=== PATIENT | male | born 1955 | race Caucasian/White ===

== ENCOUNTER 2018-02-21 12:30 | Emergency (ER) | payer MEDICARE, OTHER ==
[~2018-02-21] VITALS: Ht 5703.2 cm; Wt 70.8 kg
[~2018-02-21 12:30] MED LIST: ALBU8HFA PO; CLOP75TA35 PO; ESOM40CA PO; LISI-222 PO; LOP25T PO; MAGN250T28 PO; MELA1TAB21 PO; MILK200C4 PO; MONT10TA21 PO; NORT50CA PO; ROSU5TAB4 PO; ZIPR40CA2 PO
[2018-02-21] MEDS ORDERED: normal saline 1000ML IV soln IVB ONE (13:00)
[2018-02-21 13:27] LABS: BASOPHILS % (AUTO) 0.5 % (0-1); EOSINOPHILS # (AUTO) 0.2 X10'3 (0-0.9); EOSINOPHILS % (AUTO) 2.6 % (0-6); HEMATOCRIT 37.5 % (42.0-52.0); HEMOGLOBIN 12.7 g/dl (14.0-17.9); LYMPHOCYTES # (AUTO) 1.7 X10'3 (1.1-4.8); MEAN CORPUSCULAR HEMOGLOBIN 29.6 PG (27.0-31.0); MEAN CORPUSCULAR VOLUME 87.3 FL (78-98); MEAN PLATELET VOLUME 6.8 FL (7.4-10.4); MONOCYTES % (AUTO) 11.5 % (2-12); NEUTROPHILS # (AUTO) 5.9 X10'3 (1.8-7.7); NEUTROPHILS % (AUTO) 66.4 % (42-75); PLATELET COUNT 630 X10'3 (140-440); RED CELL DISTRIBUTION WIDTH 13.8 % (11.5-14.5); WHITE BLOOD COUNT 8.9 X10'3 (4.5-11.0)
[2018-02-21 13:41] LABS: ALANINE AMINOTRANSFERASE 27 U/L (12-78); ALBUMIN 2.9 G/DL (3.4-5.0); ALBUMIN/GLOBULIN RATIO 0.7 (1.1-1.5); ALKALINE PHOSPHATASE 80 IU/L (46-116); ANION GAP 15 (8-16); ASPARTATE AMINO TRANSFERASE 13 U/L (10-37); BILIRUBIN,TOTAL 0.4 MG/DL (0.1-1.0); BLOOD UREA NITROGEN 19 MG/DL (7-18); CALCIUM 9.4 MG/DL (8.5-10.1); CHLORIDE 98 MMOL/L (99-107); CREATININE 1.19 MG/DL (0.60-1.10); GLUCOSE 355 MG/DL (70-104); POTASSIUM 3.3 MMOL/L (3.5-5.1); SODIUM 136 MMOL/L (135-145); TOTAL CARBON DIOXIDE 22.8 MMOL/L (24-32); TOTAL PROTEIN 7.1 G/DL (6.4-8.2); eGFR 62 ML/MIN
[2018-02-21 13:50] LABS: LIPASE 142 U/L (73-393)
[2018-02-21] MEDS ORDERED: ROPI1TAB4 PO (15:25)
[2018-02-21] MEDS ORDERED: FENO134C PO (15:25)
[2018-02-21] MEDS ORDERED: NORT50CA5 PO (15:25)
[2018-02-21] MEDS ORDERED: ESOM20CA PO (15:25)
[2018-02-21] MEDS ORDERED: MELO-100 PO (15:25)
[2018-02-21] MEDS ORDERED: LEVO750T21 PO (15:25)
[2018-02-21] MEDS ORDERED: ZIPR40CA2 PO (15:25)
[2018-02-21] MEDS ORDERED: ROSU20TA PO (15:25)
[2018-02-21 15:30] LABS: CLARITY,URINE CLEAR (Clear); COLOR,URINE YELLOW (Yellow); GLUCOSE, URINE >=1000 mg/dl (Neg); KETONES,URINE TRACE mg/dl (Neg); LEUKOCYTE ESTERASE ,URINE NEGATIVE (Neg); NITRITES, URINE NEGATIVE (Neg); OCCULT BLOOD,URINE NEGATIVE (Neg); PROTEIN,URINE NEGATIVE (Neg); UROBILINOGEN,URINE 0.2 E.U/dL (0.2-1.0)
[2018-02-21 15:35] LABS: UA COLLECTION TYPE CLN CATCH MIDSTREAM
[2018-02-21 15:37] LABS: BACTERIA,URINE FEW /HPF (Neg); RBC,URINE 0-2 /HPF (0-2); SQUAMOUS EPITHELIAL CELL,UR FEW /LPF (FEW); WBC,URINE 0-4 /HPF (0-4)
[2018-02-21] MEDS ORDERED: ketorolac trometh. 30mg/ml inj. IV ONE (15:40)
[2018-02-21] MEDS ORDERED: HYDROcodone/acetaminophen 10/325mg tab PO ONE (15:40)
[2018-02-21 15:43] VITALS: BP 120/80
== END 2018-02-21 15:53 | disposition home or self-care (01) ==
LOC: ER 12:31
DX: E03.9 Hypothyroidism, unspecified (principal); K21.9 Gastro-esophageal reflux disease without esophagitis; M19.90 Unspecified osteoarthritis, unspecified site; J02.9 Acute pharyngitis, unspecified; F20.9 Schizophrenia, unspecified; E78.00 Pure hypercholesterolemia, unspecified; I25.10 Atherosclerotic heart disease of native coronary artery without angina pectoris; I10 Essential (primary) hypertension; F17.200 Nicotine dependence, unspecified, uncomplicated; F12.10 Cannabis abuse, uncomplicated; Z76.0 Encounter for issue of repeat prescription; Z90.49 Acquired absence of other specified parts of digestive tract; Z98.890 Other specified postprocedural states; Z88.0 Allergy status to penicillin; Z91.018 Allergy to other foods; Z79.899 Other long term (current) drug therapy
CPT/HCPCS: 36415; 71045; 80053; 81001; 83690; 84443; 85025; 96374; 99285; J1885; J7030

== ENCOUNTER 2018-06-06 14:50 | Inpatient (IN) | payer MEDICARE, OTHER ==
[~2018-06-06] VITALS: Ht 180.3 cm; Wt 72.7 kg
[~2018-06-06 14:50] MED LIST changes: +FENO134C PO; +MELO-100 PO; +NORT50CA5 PO; +ROPI1TAB4 PO
[2018-06-06 15:30] LABS: BASOPHILS % (AUTO) 0.5 % (0-1); EOSINOPHILS # (AUTO) 0.6 X10'3 (0-0.9); EOSINOPHILS % (AUTO) 8.1 % (0-6); HEMOGLOBIN 13.7 g/dl (14.0-17.9); LYMPHOCYTES # (AUTO) 1.8 X10'3 (1.1-4.8); MEAN CORPUSCULAR HEMOGLOBIN 26.3 PG (27.0-31.0); MEAN CORPUSCULAR HGB CONC 33.4 % (33.0-36.5); MEAN CORPUSCULAR VOLUME 78.7 FL (78-98); MEAN PLATELET VOLUME 7.2 FL (7.4-10.4); MONOCYTES # (AUTO) 0.6 X10'3 (0-0.9); MONOCYTES % (AUTO) 7.9 % (2-12); NEUTROPHILS # (AUTO) 4.7 X10'3 (1.8-7.7); NEUTROPHILS % (AUTO) 60.5 % (42-75); PLATELET COUNT 386 X10'3 (140-440); RED BLOOD COUNT 5.21 X10'6 (4.70-6.10); WHITE BLOOD COUNT 7.7 X10'3 (4.5-11.0)
[2018-06-06] MEDS ORDERED: LORazepam 2 mg/ml vial IV ONE (15:30)
[2018-06-06 15:41] LABS: INR 1.1 INR; PARTIAL THROMBOPLASTIN TIME 25 SECONDS (22-32)
[2018-06-06 15:44] LABS: ALANINE AMINOTRANSFERASE 21 U/L (12-78); ALBUMIN 4.1 G/DL (3.4-5.0); ALKALINE PHOSPHATASE 66 IU/L (46-116); ANION GAP 16 (8-16); ASPARTATE AMINO TRANSFERASE 10 U/L (10-37); BILIRUBIN,TOTAL 0.6 MG/DL (0.1-1.0); BLOOD UREA NITROGEN 15 MG/DL (7-18); CALCIUM 9.9 MG/DL (8.5-10.1); CHLORIDE 103 MMOL/L (99-107); CREATININE 1.07 MG/DL (0.60-1.10); GLUCOSE 148 MG/DL (70-104); POTASSIUM 3.7 MMOL/L (3.5-5.1); SODIUM 137 MMOL/L (135-145); TOTAL CARBON DIOXIDE 17.9 MMOL/L (24-32); TOTAL PROTEIN 8.2 G/DL (6.4-8.2); eGFR 70 ML/MIN
[2018-06-06] MEDS ORDERED: ketorolac trometh. 30mg/ml inj. IV ONE (15:45)
[2018-06-06] MEDS ORDERED: pantoprazole 40 MG vial IV ONE (15:45)
[2018-06-06] MEDS ORDERED: ziprasidone 20mg capsule PO ONE (15:45)
[2018-06-06 15:48] LABS: ANISOCYTOSIS 2+; PLATELET ESTIMATE NORMAL; POIKILOCYTOSIS 2+
[2018-06-06 15:49] LABS: BURR CELLS 1+; ELLIPTOCYTES 2+; MICROCYTOSIS 1+
[2018-06-06] MEDS ORDERED: ziprasidone IM 20mg inj **IM only IM ONE (16:10)
[2018-06-06] MEDS ORDERED: normal saline 1000ML IV soln IVB ONE (16:35)
[2018-06-06] MEDS ORDERED: morphine 4 MG/ML inj SYRINge IV ONE (17:05)
[2018-06-06] MEDS ORDERED: METO-395 PO (17:07)
[2018-06-06] MEDS ORDERED: LEVO75TA7 PO (17:07)
[2018-06-06] MEDS ORDERED: SITA1TAB2 PO (17:07)
[2018-06-06] MEDS ORDERED: PANT40TA4 PO (17:07)
[2018-06-06] MEDS ORDERED: SUCR1TAB PO (17:07)
[2018-06-06] MEDS ORDERED: ROSU20TA30 PO (17:07)
[2018-06-06] MEDS ORDERED: MELO7.5T12 PO (17:17)
[2018-06-06] MEDS ORDERED: FENO134C9 PO (17:17)
[2018-06-06] MEDS ORDERED: ROPI1TAB2 PO (17:17)
[2018-06-06] MEDS ORDERED: ZIPR40CA2 PO (17:17)
[2018-06-06] MEDS ORDERED: bisacodyl 10mg suppository rectal RC PRN (17:35)
[2018-06-06] MEDS ORDERED: magnesium 1gm/100ml D5W IVPB 100 ML IV PRN (17:35)
[2018-06-06] MEDS ORDERED: acetaminophen 325mg tablet PO PRN ×2 (17:35)
[2018-06-06] MEDS ORDERED: non-formulary drug (albuterol inhaler (Pro-Air Inhaler) 0 PUFFS) PO PRN (17:35)
[2018-06-06] MEDS ORDERED: MESSAGE TO PHARMACY PO ONE (17:35)
[2018-06-06] MEDS ORDERED: magnesium 4gm in 100ml NS 100 ML IV PRN (17:35)
[2018-06-06] MEDS ORDERED: ondansetron/PF 4mg/2ml inj IV PRN (17:35)
[2018-06-06] MEDS ORDERED: magnesium Cl slow-release 64mg tablet PO PRN (17:35)
[2018-06-06] MEDS ORDERED: montelukast 10mg tablet PO PRN (17:35)
[2018-06-06] MEDS ORDERED: morphine 4 MG/ML inj SYRINge IV PRN (17:35)
[2018-06-06] MEDS ORDERED: dextrose ORAL solution 15 GM/59 ML bottle PO PRN ×2 (17:35)
[2018-06-06] MEDS ORDERED: potassium Cl 40MEQ/NS 500ml 500 ML IV PRN ×2 (17:35)
[2018-06-06] MEDS: K and/or MAG REPLACEMENT MC SCH (17:35)
[2018-06-06] MEDS ORDERED: dextrose 50%-water 50ml dispensing syringe IV PRN ×2 (17:35)
[2018-06-06] MEDS ORDERED: diphenhydrAMINE 25mg capsule PO PRN (17:35)
[2018-06-06] MEDS ORDERED: insulin Lispro (HumaLOG) vial - multi-dose SQ SCH (17:35)
[2018-06-06] MEDS ORDERED: glucagon, human recombinant 1mg kit SUBCUT PRN (17:35)
[2018-06-06] MEDS ORDERED: diphenhydrAMINE 50 mg/ml inj IV PRN (17:35)
[2018-06-06] MEDS ORDERED: mag hydrox/Alum hydrox/simeth 30ml oral suspension PO PRN (17:35)
[2018-06-06] MEDS ORDERED: potassium Cl 20 mEq SR tablet PO PRN ×2 (17:35)
[2018-06-06] MEDS ORDERED: magnesium hydroxide 30ml (MOM) UD suspension PO PRN (17:35)
[2018-06-06] MEDS ORDERED: albuterol 2.5 MG/3 ML nebule NEB PRN (17:50)
[2018-06-06 18:18] LABS: HEMOGLOBIN A1C 8.1 % (4.5-6.2)
[2018-06-06] MEDS: normal saline 1000ml 1,000 ML IV SCH ×2 (18:37→23:38)
[2018-06-06] MEDS ORDERED: non-formulary drug (Ziprasidone Hcl (Geodon) 1 CAP) PO SCH (20:00)
[2018-06-06] MEDS: pantoprazole 40mg Tablet.DR PO SCH (20:03)
[2018-06-06] MEDS: heparin, porcine 5000 units/ml vial SQ SCH (20:03)
[2018-06-06] MEDS: HYDROcodone/acetaminophen 5mg/325mg tablet PO PRN (20:03)
[2018-06-06] MEDS: ziprasidone 20mg capsule PO SCH (20:03)
[2018-06-06] MEDS: insulin glargine (Lantus) pen - multi-dose SQ SCH (20:59)
[2018-06-06] MEDS: sucralfate 1 gm tablet PO SCH (21:00)
[2018-06-06] MEDS: ROPINIRole 1mg tablet PO SCH ×2 (21:00→21:38)
[2018-06-06] MEDS: Melatonin 3mg tablet PO SCH ×2 (21:00→21:39)
[2018-06-06] MEDS ORDERED: MELATONIN PO SCH (21:00)
[2018-06-06] MEDS: pyridoxine 50mg tablet PO SCH (21:00)
[2018-06-06] MEDS ORDERED: PYRIDOXINE HCL PO SCH (21:00)
[2018-06-06] MEDS: nortriptyline 25mg capsule PO SCH ×2 (21:00→21:38)
[2018-06-06 21:02] LABS: CLARITY,URINE CLEAR (Clear); COLOR,URINE YELLOW (Yellow); GLUCOSE, URINE NEGATIVE (Neg); KETONES,URINE TRACE mg/dl (Neg); LEUKOCYTE ESTERASE ,URINE NEGATIVE (Neg); NITRITES, URINE NEGATIVE (Neg); OCCULT BLOOD,URINE NEGATIVE (Neg); PROTEIN,URINE 30 mg/dl (Neg); UROBILINOGEN,URINE 0.2 E.U/dL (0.2-1.0)
[2018-06-06 21:21] LABS: UA COLLECTION TYPE CLN CATCH MIDSTREAM
[2018-06-06 21:23] LABS: BACTERIA,URINE FEW /HPF (Neg); RBC,URINE 0-2 /HPF (0-2)
[2018-06-06 21:24] LABS: MUCUS STRANDS FEW /LPF (Neg); SQUAMOUS EPITHELIAL CELL,UR FEW /LPF (FEW)
[2018-06-06] MEDS: morphine 4 MG/ML inj SYRINge IV PRN (21:38)
[2018-06-06 23:30] VITALS: BP 153/93
[2018-06-07] VITALS (13 sets, daily range): BP systolic 109–158; BP diastolic 69–99
[2018-06-07] MEDS: morphine 4 MG/ML inj SYRINge IV PRN ×5 (02:12→20:19)
[2018-06-07 05:12] LABS: BASOPHILS # (AUTO) 0.1 X10'3 (0-0.2); BASOPHILS % (AUTO) 0.9 % (0-1); EOSINOPHILS # (AUTO) 0.7 X10'3 (0-0.9); HEMATOCRIT 35.3 % (42.0-52.0); HEMOGLOBIN 11.6 g/dl (14.0-17.9); LYMPHOCYTES # (AUTO) 1.9 X10'3 (1.1-4.8); LYMPHOCYTES % (AUTO) 32.7 % (21-51); MEAN CORPUSCULAR HGB CONC 32.9 % (33.0-36.5); MEAN CORPUSCULAR VOLUME 79.1 FL (78-98); MEAN PLATELET VOLUME 7.3 FL (7.4-10.4); MONOCYTES # (AUTO) 0.5 X10'3 (0-0.9); MONOCYTES % (AUTO) 8.4 % (2-12); NEUTROPHILS # (AUTO) 2.6 X10'3 (1.8-7.7); PLATELET COUNT 336 X10'3 (140-440); RED BLOOD COUNT 4.46 X10'6 (4.70-6.10); WHITE BLOOD COUNT 5.7 X10'3 (4.5-11.0)
[2018-06-07 05:41] LABS: ALANINE AMINOTRANSFERASE 19 U/L (12-78); ALBUMIN 3.2 G/DL (3.4-5.0); ALBUMIN/GLOBULIN RATIO 0.9 (1.1-1.5); ALKALINE PHOSPHATASE 53 IU/L (46-116); ANION GAP 9 (8-16); ASPARTATE AMINO TRANSFERASE 13 U/L (10-37); BILIRUBIN,TOTAL 0.4 MG/DL (0.1-1.0); BLOOD UREA NITROGEN 15 MG/DL (7-18); BUN/CREATININE RATIO 16.1 (5.4-32.0); CALCIUM 8.1 MG/DL (8.5-10.1); CHLORIDE 108 MMOL/L (99-107); CREATININE 0.93 MG/DL (0.60-1.10); GLUCOSE 92 MG/DL (70-104); POTASSIUM 4.1 MMOL/L (3.5-5.1); SODIUM 139 MMOL/L (135-145); TOTAL CARBON DIOXIDE 21.7 MMOL/L (24-32); TOTAL PROTEIN 6.6 G/DL (6.4-8.2); eGFR 82 ML/MIN
[2018-06-07 05:46] LABS: MAGNESIUM 1.6 MG/DL (1.5-2.4); PHOSPHORUS 2.8 MG/DL (2.3-4.5)
[2018-06-07 05:59] LABS: ACANTHOCYTES 1+; ANISOCYTOSIS 2+; BURR CELLS 1+; ELLIPTOCYTES 2+; PLATELET ESTIMATE NORMAL
[2018-06-07] MEDS: sucralfate 1 gm tablet PO SCH ×4 (07:00→20:16)
[2018-06-07] MEDS: metoprolol succinate 25mg (24-HOUR) SR. Tablet PO SCH (07:15)
[2018-06-07] MEDS: lisinopril 5mg tablet PO SCH (07:15)
[2018-06-07] MEDS: atorvastatin 20mg tablet PO SCH (07:27)
[2018-06-07] MEDS: levoTHYROXINE 75mcg tablet PO SCH (07:27)
[2018-06-07] MEDS: ziprasidone 20mg capsule PO SCH ×2 (07:27→20:16)
[2018-06-07] MEDS: pantoprazole 40mg Tablet.DR PO SCH ×2 (07:27→20:15)
[2018-06-07] MEDS: heparin, porcine 5000 units/ml vial SQ SCH ×2 (07:31→20:17)
[2018-06-07] MEDS: K and/or MAG REPLACEMENT MC SCH (07:31)
[2018-06-07] MEDS: fenofibrate 145mg tablet PO SCH (07:32)
[2018-06-07] MEDS ORDERED: non-formulary drug (Rosuvastatin Calcium 1 TAB) PO SCH (08:00)
[2018-06-07] MEDS ORDERED: non-formulary drug (Fenofibrate,Micronized (Fenofibrate) 1 CAP) PO SCH (08:00)
[2018-06-07] MEDS ORDERED: MILK THISTLE SEED EXTRACT 200 MG PO SCH (08:00)
[2018-06-07] MEDS: normal saline 1000ml 1,000 ML IV SCH ×2 (10:31→22:33)
[2018-06-07] MEDS ORDERED: fentaNYL/PF 50MCG/1 ML 2ML syringe ONE (13:38)
[2018-06-07] MEDS ORDERED: LIDOcaine Viscous 15ml cup ONE (13:38)
[2018-06-07] MEDS ORDERED: MIDAZolam 5mg/5ml vial ONE (13:38)
[2018-06-07] MEDS: ROPINIRole 1mg tablet PO SCH (20:13)
[2018-06-07] MEDS: Melatonin 3mg tablet PO SCH (20:14)
[2018-06-07] MEDS: pyridoxine 50mg tablet PO SCH (20:15)
[2018-06-07] MEDS: nortriptyline 25mg capsule PO SCH (20:37)
[2018-06-07] MEDS: insulin glargine (Lantus) pen - multi-dose SQ SCH (21:00)
[2018-06-08] VITALS: BP 114/73
[2018-06-08] MEDS: morphine 4 MG/ML inj SYRINge IV PRN (02:56)
[2018-06-08 03:02] LABS: BASOPHILS % (AUTO) 0.6 % (0-1); EOSINOPHILS # (AUTO) 0.8 X10'3 (0-0.9); EOSINOPHILS % (AUTO) 11.2 % (0-6); HEMATOCRIT 34.1 % (42.0-52.0); HEMOGLOBIN 11.3 g/dl (14.0-17.9); LYMPHOCYTES # (AUTO) 1.6 X10'3 (1.1-4.8); LYMPHOCYTES % (AUTO) 21.6 % (21-51); MEAN CORPUSCULAR HEMOGLOBIN 26.3 PG (27.0-31.0); MEAN CORPUSCULAR HGB CONC 33.2 % (33.0-36.5); MEAN CORPUSCULAR VOLUME 79.2 FL (78-98); MEAN PLATELET VOLUME 7.2 FL (7.4-10.4); MONOCYTES # (AUTO) 0.5 X10'3 (0-0.9); MONOCYTES % (AUTO) 7.4 % (2-12); NEUTROPHILS # (AUTO) 4.3 X10'3 (1.8-7.7); NEUTROPHILS % (AUTO) 59.2 % (42-75); PLATELET COUNT 320 X10'3 (140-440); RED BLOOD COUNT 4.31 X10'6 (4.70-6.10); RED CELL DISTRIBUTION WIDTH 17.6 % (11.5-14.5); WHITE BLOOD COUNT 7.2 X10'3 (4.5-11.0)
[2018-06-08 03:47] LABS: ALANINE AMINOTRANSFERASE 19 U/L (12-78); ALBUMIN 3.2 G/DL (3.4-5.0); ALBUMIN/GLOBULIN RATIO 0.9 (1.1-1.5); ALKALINE PHOSPHATASE 53 IU/L (46-116); ANION GAP 12 (8-16); ASPARTATE AMINO TRANSFERASE 16 U/L (10-37); BILIRUBIN,TOTAL 0.4 MG/DL (0.1-1.0); BLOOD UREA NITROGEN 8 MG/DL (7-18); BUN/CREATININE RATIO 9.5 (5.4-32.0); CALCIUM 8.3 MG/DL (8.5-10.1); CHLORIDE 107 MMOL/L (99-107); CREATININE 0.84 MG/DL (0.60-1.10); GLUCOSE 108 MG/DL (70-104); MAGNESIUM 1.7 MG/DL (1.5-2.4); PHOSPHORUS 2.4 MG/DL (2.3-4.5); POTASSIUM 3.4 MMOL/L (3.5-5.1); SODIUM 138 MMOL/L (135-145); TOTAL CARBON DIOXIDE 18.9 MMOL/L (24-32); TOTAL PROTEIN 6.7 G/DL (6.4-8.2); eGFR > 90 ML/MIN
[2018-06-08 06:51] VITALS: BP 120/81
[2018-06-08] MEDS: ziprasidone 20mg capsule PO SCH (07:08)
[2018-06-08] MEDS: sucralfate 1 gm tablet PO SCH (07:09)
[2018-06-08] MEDS: pantoprazole 40mg Tablet.DR PO SCH (07:09)
[2018-06-08] MEDS: HYDROcodone/acetaminophen 5mg/325mg tablet PO PRN (07:09)
[2018-06-08] MEDS: lisinopril 5mg tablet PO SCH (07:09)
[2018-06-08] MEDS: metoprolol succinate 25mg (24-HOUR) SR. Tablet PO SCH (07:09)
[2018-06-08] MEDS: atorvastatin 20mg tablet PO SCH (07:09)
[2018-06-08] MEDS: heparin, porcine 5000 units/ml vial SQ SCH (07:10)
[2018-06-08] MEDS: levoTHYROXINE 75mcg tablet PO SCH (07:10)
[2018-06-08] MEDS: K and/or MAG REPLACEMENT MC SCH (08:00)
[2018-06-08] MEDS: fenofibrate 145mg tablet PO SCH (09:30)
[2018-06-08] MEDS: normal saline 1000ml 1,000 ML IV SCH (09:34)
== END 2018-06-08 10:30 | disposition home or self-care (01) | DRG 392 ==
LOC: ER 14:51 → ED HOLD 17:34 → SUR 3N 23:27
PROVIDERS: ADMIT Family Medicine; ATTEND Family Medicine
PROC: 0D758ZZ Dilation of Esophagus, Via Natural or Artificial Opening Endoscopic (ICD-10-PCS; principal; 2018-06-07)
DX: K22.2 Esophageal obstruction (principal); J45.909 Unspecified asthma, uncomplicated; E03.9 Hypothyroidism, unspecified; E11.9 Type 2 diabetes mellitus without complications; E78.00 Pure hypercholesterolemia, unspecified; E78.5 Hyperlipidemia, unspecified; E87.6 Hypokalemia; F20.9 Schizophrenia, unspecified; F43.10 Post-traumatic stress disorder, unspecified; K44.9 Diaphragmatic hernia without obstruction or gangrene; G47.00 Insomnia, unspecified; I10 Essential (primary) hypertension; I25.10 Atherosclerotic heart disease of native coronary artery without angina pectoris; F41.9 Anxiety disorder, unspecified; J44.9 Chronic obstructive pulmonary disease, unspecified; K21.0 Gastro-esophageal reflux disease with esophagitis; K76.9 Liver disease, unspecified; F12.90 Cannabis use, unspecified, uncomplicated; Z60.2 Problems related to living alone; Z95.5 Presence of coronary angioplasty implant and graft; Z90.49 Acquired absence of other specified parts of digestive tract; Z89.021 Acquired absence of right finger(s); Z88.0 Allergy status to penicillin; Z91.018 Allergy to other foods; Z79.02 Long term (current) use of antithrombotics/antiplatelets; Z79.899 Other long term (current) drug therapy; Z79.84 Long term (current) use of oral hypoglycemic drugs; Z82.3 Family history of stroke; Z82.49 Family history of ischemic heart disease and other diseases of the circulatory system; Z83.3 Family history of diabetes mellitus
CPT/HCPCS: 36415; 43249; 71045; 80053; 81001; 82948; 83036; 83735; 84100; 84443; 84484; 85025; 85610; 85730; 87070; 87088; 93005; 94760; 96361; 96372; 96374; 96375; 99285; A4620; C1726; C9113; G0500; J1644; J1815; J1885; J2060; J2250; J2270; J3010; J3486; J7030

== ENCOUNTER 2018-07-04 14:03 | Emergency (ER) | payer MEDICARE, OTHER ==
[~2018-07-04] VITALS: Ht 180.3 cm; Wt 63.6 kg
[~2018-07-04 14:03] MED LIST changes: -CLOP75TA35 PO; -ESOM40CA PO; -FENO134C PO; +FENO134C9 PO; +LEVO75TA7 PO; -LOP25T PO; -MELO-100 PO; +METO-395 PO; -NORT50CA5 PO; +PANT40TA4 PO; +ROPI1TAB2 PO; -ROPI1TAB4 PO; +ROSU20TA30 PO; -ROSU5TAB4 PO; +SITA1TAB2 PO; +SUCR1TAB PO
[2018-07-04] MEDS ORDERED: LIDOcaine Viscous 15ml cup ONE (15:46)
[2018-07-04] MEDS ORDERED: MIDAZolam 5mg/5ml vial ONE (15:46)
[2018-07-04] MEDS ORDERED: fentaNYL/PF 50MCG/1 ML 2ML syringe ONE (15:46)
[2018-07-04 16:07] VITALS: BP 123/79
[2018-07-04 16:40] VITALS: BP 138/101
[2018-07-04 16:50] VITALS: BP 136/92
[2018-07-04 17:00] VITALS: BP 126/93
[2018-07-04 17:05] VITALS: BP 127/88
[2018-07-04 17:29] VITALS: BP 118/81
[2018-07-04] MEDS ORDERED: ondansetron/PF 4mg/2ml inj IV ONE (18:50)
[2018-07-04] MEDS ORDERED: morphine 4 MG/ML inj SYRINge IV ONE (18:50)
== END 2018-07-04 19:30 | disposition home or self-care (01) ==
LOC: ER 14:03
DX: K22.2 Esophageal obstruction (principal); I25.10 Atherosclerotic heart disease of native coronary artery without angina pectoris; E78.00 Pure hypercholesterolemia, unspecified; I10 Essential (primary) hypertension; F12.90 Cannabis use, unspecified, uncomplicated; Z90.49 Acquired absence of other specified parts of digestive tract; Z98.890 Other specified postprocedural states; Z88.0 Allergy status to penicillin; Z91.018 Allergy to other foods; Z79.899 Other long term (current) drug therapy
CPT/HCPCS: 43239; 96374; 96375; 99152; 99153; 99285; C1726; J2250; J2270; J2405; J3010; J7030; A4620; G0500

== ENCOUNTER 2018-07-19 12:05 | Inpatient (IN) | payer MEDICARE, MEDICAID ==
[~2018-07-19] VITALS: Ht 175.3 cm; Wt 63.0 kg
[2018-07-19] MEDS ORDERED: normal saline 1000ML IV soln IVB ONE (12:30)
[2018-07-19] MEDS ORDERED: morphine 4 MG/ML inj SYRINge IV ONE (12:50)
[2018-07-19] MEDS ORDERED: ondansetron/PF 4mg/2ml inj IV ONE (12:50)
[2018-07-19 13:07] LABS: ALANINE AMINOTRANSFERASE 26 U/L (12-78); ALBUMIN 4.3 G/DL (3.4-5.0); ALKALINE PHOSPHATASE 72 IU/L (46-116); ANION GAP 13 (8-16); ASPARTATE AMINO TRANSFERASE 15 U/L (10-37); BILIRUBIN,TOTAL 0.6 MG/DL (0.1-1.0); BLOOD UREA NITROGEN 15 MG/DL (7-18); CALCIUM 9.6 MG/DL (8.5-10.1); CHLORIDE 102 MMOL/L (99-107); CREATININE 1.07 MG/DL (0.60-1.10); GLUCOSE 165 MG/DL (70-104); POTASSIUM 4.2 MMOL/L (3.5-5.1); SODIUM 137 MMOL/L (135-145); TOTAL PROTEIN 8.5 G/DL (6.4-8.2); eGFR 69 ML/MIN
[2018-07-19 13:12] LABS: BASOPHILS # (AUTO) 0.1 X10'3 (0-0.2); BASOPHILS % (AUTO) 0.8 % (0-1); EOSINOPHILS # (AUTO) 0.9 X10'3 (0-0.9); EOSINOPHILS % (AUTO) 11.8 % (0-6); HEMATOCRIT 43.7 % (42.0-52.0); HEMOGLOBIN 14.5 g/dl (14.0-17.9); LYMPHOCYTES # (AUTO) 1.8 X10'3 (1.1-4.8); LYMPHOCYTES % (AUTO) 24.7 % (21-51); MEAN CORPUSCULAR HEMOGLOBIN 26.2 PG (27.0-31.0); MEAN CORPUSCULAR HGB CONC 33.2 % (33.0-36.5); MEAN CORPUSCULAR VOLUME 79.1 FL (78-98); MONOCYTES # (AUTO) 0.5 X10'3 (0-0.9); MONOCYTES % (AUTO) 7.1 % (2-12); NEUTROPHILS # (AUTO) 4.2 X10'3 (1.8-7.7); NEUTROPHILS % (AUTO) 55.6 % (42-75); PLATELET COUNT 396 X10'3 (140-440); RED BLOOD COUNT 5.52 X10'6 (4.70-6.10); RED CELL DISTRIBUTION WIDTH 17.2 % (11.5-14.5); WHITE BLOOD COUNT 7.5 X10'3 (4.5-11.0)
[2018-07-19] MEDS ORDERED: magnesium 1gm/100ml D5W IVPB 100 ML IV PRN (14:30)
[2018-07-19] MEDS ORDERED: potassium Cl 40MEQ/NS 500ml 500 ML IV PRN ×2 (14:30)
[2018-07-19] MEDS ORDERED: bisacodyl 10mg suppository rectal RC PRN (14:30)
[2018-07-19] MEDS ORDERED: magnesium 4gm in 100ml NS 100 ML IV PRN (14:30)
[2018-07-19] MEDS ORDERED: mag hydrox/Alum hydrox/simeth 30ml oral suspension PO PRN (14:30)
[2018-07-19] MEDS ORDERED: ondansetron/PF 4mg/2ml inj IV PRN (14:30)
[2018-07-19] MEDS ORDERED: morphine 2 MG/ML inj. syringe IV PRN ×3 (14:30→18:25)
[2018-07-19] MEDS ORDERED: acetaminophen 325mg tablet PO PRN (14:30)
[2018-07-19] MEDS ORDERED: magnesium hydroxide 30ml (MOM) UD suspension PO PRN (14:30)
[2018-07-19] MEDS ORDERED: magnesium Cl slow-release 64mg tablet PO PRN (14:30)
[2018-07-19] MEDS ORDERED: potassium Cl 20 mEq SR tablet PO PRN (14:30)
[2018-07-19] MEDS ORDERED: glucagon, human recombinant 1mg kit SUBCUT PRN (14:40)
[2018-07-19] MEDS ORDERED: dextrose 50%-water 50ml dispensing syringe IV PRN ×2 (14:40)
[2018-07-19] MEDS ORDERED: MESSAGE TO PHARMACY PO ONE (14:40)
[2018-07-19] MEDS ORDERED: insulin Lispro (HumaLOG) vial - multi-dose SQ SCH (14:40)
[2018-07-19] MEDS ORDERED: dextrose ORAL solution 15 GM/59 ML bottle PO PRN ×2 (14:40)
[2018-07-19] MEDS ORDERED: pantoprazole 40 MG vial IV SCH (14:40)
[2018-07-19] MEDS: ziprasidone IM 20mg inj **IM only IM SCH ×2 (15:09→21:06)
[2018-07-19] MEDS: levoTHYROXINE sod inj. 100mcg/5 ml vial IV SCH (15:09)
[2018-07-19] MEDS: dextrose 5%-1/2 normal saline 1,000 ML IV SCH (16:14)
[2018-07-19 17:00] VITALS: BP 119/89
[2018-07-19 18:30] VITALS: BP 114/73
[2018-07-19 23:52] VITALS: BP 106/67
[2018-07-20] MEDS: morphine 2 MG/ML inj. syringe IV PRN ×4 (03:04→20:04)
[2018-07-20] MEDS: dextrose 5%-1/2 normal saline 1,000 ML IV SCH ×2 (03:04→18:11)
[2018-07-20 05:32] LABS: BASOPHILS % (AUTO) 0.8 % (0-1); EOSINOPHILS % (AUTO) 18.1 % (0-6); HEMATOCRIT 36.1 % (42.0-52.0); HEMOGLOBIN 12.2 g/dl (14.0-17.9); LYMPHOCYTES # (AUTO) 1.7 X10'3 (1.1-4.8); LYMPHOCYTES % (AUTO) 29.8 % (21-51); MEAN CORPUSCULAR HEMOGLOBIN 26.8 PG (27.0-31.0); MEAN CORPUSCULAR HGB CONC 33.9 % (33.0-36.5); MEAN CORPUSCULAR VOLUME 79.2 FL (78-98); MEAN PLATELET VOLUME 7.7 FL (7.4-10.4); MONOCYTES # (AUTO) 0.5 X10'3 (0-0.9); MONOCYTES % (AUTO) 8.6 % (2-12); NEUTROPHILS # (AUTO) 2.5 X10'3 (1.8-7.7); NEUTROPHILS % (AUTO) 42.7 % (42-75); PLATELET COUNT 312 X10'3 (140-440); RED BLOOD COUNT 4.55 X10'6 (4.70-6.10); RED CELL DISTRIBUTION WIDTH 17.1 % (11.5-14.5); WHITE BLOOD COUNT 5.7 X10'3 (4.5-11.0)
[2018-07-20] MEDS: pantoprazole 40 MG vial IV SCH (05:35)
[2018-07-20 05:53] LABS: ALBUMIN 3.3 G/DL (3.4-5.0); ANION GAP 10 (8-16); BLOOD UREA NITROGEN 13 MG/DL (7-18); BUN/CREATININE RATIO 15.3 (5.4-32.0); CALCIUM 8.2 MG/DL (8.5-10.1); CHLORIDE 107 MMOL/L (99-107); CREATININE 0.85 MG/DL (0.60-1.10); GLUCOSE 128 MG/DL (70-104); MAGNESIUM 1.8 MG/DL (1.5-2.4); POTASSIUM 3.9 MMOL/L (3.5-5.1); SODIUM 140 MMOL/L (135-145); TOTAL CARBON DIOXIDE 23.5 MMOL/L (24-32); eGFR 90 ML/MIN
[2018-07-20 07:18] VITALS: BP 128/90
[2018-07-20] MEDS: K and/or MAG REPLACEMENT MC SCH (07:46)
[2018-07-20] MEDS: levoTHYROXINE sod inj. 100mcg/5 ml vial IV SCH (09:00)
[2018-07-20] MEDS: ziprasidone IM 20mg inj **IM only IM SCH ×2 (09:00→20:01)
[2018-07-20] MEDS: enoxaparin 40mg/0.4ml syringe SUBCUT SCH (09:01)
[2018-07-20] MEDS ORDERED: montelukast 10mg tablet PO PRN (09:40)
[2018-07-20 11:27] VITALS: BP 139/85
[2018-07-20] MEDS: sucralfate 1 gm tablet PO SCH ×3 (12:00→18:54)
[2018-07-20 13:49] VITALS: BP 154/79
[2018-07-20] MEDS ORDERED: diphenhydrAMINE 50 mg/ml inj IV PRN (16:20)
[2018-07-20 18:00] VITALS: BP 157/90
[2018-07-20] MEDS: ziprasidone 20mg capsule PO SCH (18:53)
[2018-07-20] MEDS: Melatonin 3mg tablet PO SCH (18:54)
[2018-07-20] MEDS: nortriptyline 25mg capsule PO SCH (18:54)
[2018-07-20] MEDS: ROPINIRole 1mg tablet PO SCH (18:54)
[2018-07-21] VITALS (20 sets, daily range): BP systolic 138–192; BP diastolic 81–110
[2018-07-21] MEDS: morphine 2 MG/ML inj. syringe IV PRN ×4 (00:09→14:04)
[2018-07-21] MEDS: pantoprazole 40 MG vial IV SCH (05:31)
[2018-07-21 06:00] LABS: BASOPHILS % (AUTO) 0.6 % (0-1); EOSINOPHILS # (AUTO) 1.2 X10'3 (0-0.9); EOSINOPHILS % (AUTO) 18.6 % (0-6); HEMOGLOBIN 12.2 g/dl (14.0-17.9); LYMPHOCYTES # (AUTO) 1.6 X10'3 (1.1-4.8); LYMPHOCYTES % (AUTO) 23.9 % (21-51); MEAN CORPUSCULAR HEMOGLOBIN 26.7 PG (27.0-31.0); MEAN CORPUSCULAR HGB CONC 33.9 % (33.0-36.5); MEAN CORPUSCULAR VOLUME 78.8 FL (78-98); MEAN PLATELET VOLUME 7.6 FL (7.4-10.4); MONOCYTES # (AUTO) 0.5 X10'3 (0-0.9); MONOCYTES % (AUTO) 8.2 % (2-12); NEUTROPHILS # (AUTO) 3.3 X10'3 (1.8-7.7); NEUTROPHILS % (AUTO) 48.7 % (42-75); PLATELET COUNT 340 X10'3 (140-440); RED BLOOD COUNT 4.57 X10'6 (4.70-6.10); RED CELL DISTRIBUTION WIDTH 17.6 % (11.5-14.5); WHITE BLOOD COUNT 6.6 X10'3 (4.5-11.0)
[2018-07-21 06:11] LABS: ALBUMIN 3.3 G/DL (3.4-5.0); ANION GAP 12 (8-16); BLOOD UREA NITROGEN 5 MG/DL (7-18); BUN/CREATININE RATIO 6.7 (5.4-32.0); CALCIUM 8.2 MG/DL (8.5-10.1); CHLORIDE 106 MMOL/L (99-107); CREATININE 0.75 MG/DL (0.60-1.10); GLUCOSE 137 MG/DL (70-104); MAGNESIUM 1.7 MG/DL (1.5-2.4); POTASSIUM 3.6 MMOL/L (3.5-5.1); SODIUM 141 MMOL/L (135-145); TOTAL CARBON DIOXIDE 23.2 MMOL/L (24-32); eGFR > 90 ML/MIN
[2018-07-21] MEDS: sucralfate 1 gm tablet PO SCH ×4 (07:00→20:08)
[2018-07-21] MEDS: K and/or MAG REPLACEMENT MC SCH (07:22)
[2018-07-21] MEDS: levoTHYROXINE 75mcg tablet PO SCH (07:23)
[2018-07-21] MEDS: enoxaparin 40mg/0.4ml syringe SUBCUT SCH (07:23)
[2018-07-21] MEDS: lisinopril 5mg tablet PO SCH (07:23)
[2018-07-21] MEDS: ziprasidone 20mg capsule PO SCH ×2 (07:23→19:24)
[2018-07-21] MEDS: metoprolol succinate 25mg (24-HOUR) SR. Tablet PO SCH (07:23)
[2018-07-21] MEDS: ziprasidone IM 20mg inj **IM only IM SCH ×2 (07:24→19:24)
[2018-07-21] MEDS: fenofibrate 145mg tablet PO SCH (07:32)
[2018-07-21] MEDS: levoTHYROXINE sod inj. 100mcg/5 ml vial IV SCH (08:41)
[2018-07-21] MEDS: dextrose 5%-1/2 normal saline 1,000 ML IV SCH (08:44)
[2018-07-21] MEDS ORDERED: normal saline 1000ml 1,000 ML IV SCH (15:53)
[2018-07-21] MEDS ORDERED: LIDOcaine Viscous 15ml cup PO ONE (15:55)
[2018-07-21] MEDS ORDERED: simethicone 40mg/0.6ml oral drops 30ml MC ONE (15:55)
[2018-07-21] MEDS ORDERED: fentaNYL/PF 50MCG/1 ML 2ML syringe IV PRN (15:55)
[2018-07-21] MEDS ORDERED: MIDAZolam 5mg/5ml vial IV PRN (15:55)
[2018-07-21] MEDS ORDERED: fentaNYL/PF 50MCG/1 ML 2ML syringe ONE (16:13)
[2018-07-21] MEDS ORDERED: MIDAZolam 5mg/5ml vial ONE (16:13)
[2018-07-21] MEDS ORDERED: LIDOcaine Viscous 15ml cup ONE (16:13)
[2018-07-21] MEDS: pantoprazole 40mg Tablet.DR PO SCH (19:21)
[2018-07-21] MEDS: Melatonin 3mg tablet PO SCH (20:07)
[2018-07-21] MEDS: HYDROcodone/acetaminophen 10/325mg tab PO PRN (20:07)
[2018-07-21] MEDS: nortriptyline 25mg capsule PO SCH (20:08)
[2018-07-21] MEDS: ROPINIRole 1mg tablet PO SCH (20:11)
[2018-07-22] VITALS: BP 151/72
[2018-07-22] MEDS: dextrose 5%-1/2 normal saline 1,000 ML IV SCH ×2 (00:01→14:00)
[2018-07-22] MEDS: HYDROcodone/acetaminophen 10/325mg tab PO PRN ×4 (04:00→12:43)
[2018-07-22 06:20] LABS: BASOPHILS % (AUTO) 0.7 % (0-1); EOSINOPHILS # (AUTO) 0.9 X10'3 (0-0.9); EOSINOPHILS % (AUTO) 16.3 % (0-6); HEMATOCRIT 38.4 % (42.0-52.0); HEMOGLOBIN 12.7 g/dl (14.0-17.9); LYMPHOCYTES # (AUTO) 1.5 X10'3 (1.1-4.8); LYMPHOCYTES % (AUTO) 28.4 % (21-51); MEAN CORPUSCULAR HEMOGLOBIN 26.3 PG (27.0-31.0); MEAN CORPUSCULAR HGB CONC 33.2 % (33.0-36.5); MEAN CORPUSCULAR VOLUME 79.5 FL (78-98); MEAN PLATELET VOLUME 7.6 FL (7.4-10.4); MONOCYTES # (AUTO) 0.4 X10'3 (0-0.9); MONOCYTES % (AUTO) 7.7 % (2-12); NEUTROPHILS # (AUTO) 2.5 X10'3 (1.8-7.7); NEUTROPHILS % (AUTO) 46.9 % (42-75); PLATELET COUNT 349 X10'3 (140-440); RED BLOOD COUNT 4.83 X10'6 (4.70-6.10); WHITE BLOOD COUNT 5.3 X10'3 (4.5-11.0)
[2018-07-22 06:43] LABS: ALBUMIN 3.5 G/DL (3.4-5.0); ANION GAP 10 (8-16); BLOOD UREA NITROGEN 4 MG/DL (7-18); BUN/CREATININE RATIO 4.6 (5.4-32.0); CALCIUM 8.9 MG/DL (8.5-10.1); CHLORIDE 105 MMOL/L (99-107); CREATININE 0.87 MG/DL (0.60-1.10); GLUCOSE 123 MG/DL (70-104); MAGNESIUM 1.7 MG/DL (1.5-2.4); POTASSIUM 3.3 MMOL/L (3.5-5.1); SODIUM 141 MMOL/L (135-145); TOTAL CARBON DIOXIDE 26.4 MMOL/L (24-32); eGFR 88 ML/MIN
[2018-07-22 07:00] VITALS: BP 155/103
[2018-07-22] MEDS: ziprasidone 20mg capsule PO SCH (07:14)
[2018-07-22] MEDS: sucralfate 1 gm tablet PO SCH ×2 (07:15→11:39)
[2018-07-22] MEDS: potassium Cl 20 mEq SR tablet PO PRN ×2 (07:15→11:39)
[2018-07-22] MEDS: lisinopril 5mg tablet PO SCH (07:16)
[2018-07-22] MEDS: enoxaparin 40mg/0.4ml syringe SUBCUT SCH (07:16)
[2018-07-22] MEDS: metoprolol succinate 25mg (24-HOUR) SR. Tablet PO SCH (07:16)
[2018-07-22] MEDS: levoTHYROXINE 75mcg tablet PO SCH (07:16)
[2018-07-22] MEDS: pantoprazole 40mg Tablet.DR PO SCH (07:16)
[2018-07-22] MEDS: ziprasidone IM 20mg inj **IM only IM SCH (07:25)
[2018-07-22] MEDS: K and/or MAG REPLACEMENT MC SCH (07:26)
[2018-07-22] MEDS: levoTHYROXINE sod inj. 100mcg/5 ml vial IV SCH (07:26)
[2018-07-22] MEDS: fenofibrate 145mg tablet PO SCH (08:41)
[2018-07-22 11:52] VITALS: BP 139/87
== END 2018-07-22 16:26 | disposition home or self-care (01) | DRG 392 ==
LOC: ER 12:05 → ED HOLD 14:30 → SUR 3N 16:45
PROVIDERS: ADMIT Internal Medicine; ATTEND Family Medicine
PROC: 0D758ZZ Dilation of Esophagus, Via Natural or Artificial Opening Endoscopic (ICD-10-PCS; principal; 2018-07-21)
DX: K22.2 Esophageal obstruction (principal); E11.9 Type 2 diabetes mellitus without complications; F43.10 Post-traumatic stress disorder, unspecified; I25.10 Atherosclerotic heart disease of native coronary artery without angina pectoris; E03.9 Hypothyroidism, unspecified; E78.00 Pure hypercholesterolemia, unspecified; E86.0 Dehydration; F20.9 Schizophrenia, unspecified; F12.90 Cannabis use, unspecified, uncomplicated; F41.9 Anxiety disorder, unspecified; I10 Essential (primary) hypertension; J45.909 Unspecified asthma, uncomplicated; Z90.49 Acquired absence of other specified parts of digestive tract; Z95.5 Presence of coronary angioplasty implant and graft; Z88.0 Allergy status to penicillin; Z91.018 Allergy to other foods; Z79.82 Long term (current) use of aspirin; Z79.02 Long term (current) use of antithrombotics/antiplatelets; Z79.899 Other long term (current) drug therapy
CPT/HCPCS: 36415; 43249; 71045; 80048; 80053; 82948; 83036; 83735; 84443; 85025; 87070; 92616; 96361; 96374; 96375; 99152; 99285; C1726; C9113; J1200; J1650; J2250; J2270; J2405; J3010; J3486; J7030

== ENCOUNTER 2018-08-04 11:55 | Emergency (ER) | payer MEDICARE, MEDICAID ==
[~2018-08-04] VITALS: Ht 180.3 cm; Wt 59.1 kg
[~2018-08-04 11:55] MED LIST changes: -MAGN250T28 PO
[2018-08-04 14:01] LABS: BASOPHILS % (AUTO) 0.5 % (0-1); EOSINOPHILS # (AUTO) 0.3 X10'3 (0-0.9); EOSINOPHILS % (AUTO) 4.2 % (0-6); HEMATOCRIT 40.5 % (42.0-52.0); HEMOGLOBIN 13.3 g/dl (14.0-17.9); LYMPHOCYTES # (AUTO) 1.2 X10'3 (1.1-4.8); LYMPHOCYTES % (AUTO) 16.1 % (21-51); MEAN CORPUSCULAR HGB CONC 32.7 % (33.0-36.5); MEAN CORPUSCULAR VOLUME 79.4 FL (78-98); MEAN PLATELET VOLUME 7.6 FL (7.4-10.4); MONOCYTES # (AUTO) 0.4 X10'3 (0-0.9); MONOCYTES % (AUTO) 5.6 % (2-12); NEUTROPHILS # (AUTO) 5.6 X10'3 (1.8-7.7); NEUTROPHILS % (AUTO) 73.6 % (42-75); PLATELET COUNT 437 X10'3 (140-440); RED CELL DISTRIBUTION WIDTH 17.8 % (11.5-14.5); WHITE BLOOD COUNT 7.7 X10'3 (4.5-11.0)
[2018-08-04 14:12] LABS: ALANINE AMINOTRANSFERASE 26 U/L (12-78); ALKALINE PHOSPHATASE 78 IU/L (46-116); ANION GAP 20 (8-16); ASPARTATE AMINO TRANSFERASE 16 U/L (10-37); BILIRUBIN,TOTAL 0.5 MG/DL (0.1-1.0); BLOOD UREA NITROGEN 27 MG/DL (7-18); BUN/CREATININE RATIO 27.6 (5.4-32.0); CALCIUM 9.3 MG/DL (8.5-10.1); CHLORIDE 103 MMOL/L (99-107); CREATININE 0.98 MG/DL (0.60-1.10); GLUCOSE 118 MG/DL (70-104); INR 1.1 INR; PARTIAL THROMBOPLASTIN TIME 28 SECONDS (22-32); PROTHROMBIN TIME 11.2 SECONDS (9.0-12.0); SODIUM 143 MMOL/L (135-145); TOTAL CARBON DIOXIDE 20.4 MMOL/L (24-32); TOTAL PROTEIN 8.1 G/DL (6.4-8.2); eGFR 77 ML/MIN
[2018-08-04] MEDS ORDERED: normal saline 1000ml 1,000 ML IV ONE (14:15)
[2018-08-04] MEDS ORDERED: LIDOcaine Viscous 15ml cup ONE (16:58)
[2018-08-04] MEDS ORDERED: fentaNYL/PF 50MCG/1 ML 2ML syringe ONE (16:58)
[2018-08-04] MEDS ORDERED: MIDAZolam 5mg/5ml vial ONE (16:58)
[2018-08-04 17:14] VITALS: BP 137/87
[2018-08-04 18:10] VITALS: BP 163/92
[2018-08-04 18:20] VITALS: BP 174/83
[2018-08-04 18:30] VITALS: BP 160/82
[2018-08-04 18:40] VITALS: BP 146/95
[2018-08-04 19:08] VITALS: BP 140/88
== END 2018-08-04 19:09 | disposition home or self-care (01) ==
LOC: ER 11:55
DX: K22.2 Esophageal obstruction (principal); I25.10 Atherosclerotic heart disease of native coronary artery without angina pectoris; E78.00 Pure hypercholesterolemia, unspecified; I10 Essential (primary) hypertension; F12.90 Cannabis use, unspecified, uncomplicated; Z90.49 Acquired absence of other specified parts of digestive tract; Z98.890 Other specified postprocedural states; Z88.0 Allergy status to penicillin; Z91.018 Allergy to other foods; Z79.899 Other long term (current) drug therapy
CPT/HCPCS: 36415; 43239; 43249; 80053; 85025; 85610; 85730; 93005; 96360; 99285; C1726; J2250; J3010; J7030; 99152; A4620

== ENCOUNTER 2018-08-24 11:27 | Inpatient (IN) | payer MEDICARE, MEDICAID ==
[~2018-08-24] VITALS: Ht 180.3 cm; Wt 63.3 kg
[2018-08-24] VITALS (7 sets, daily range): BP systolic 137–160; BP diastolic 90–103
[~2018-08-24 11:27] MED LIST changes: -MELA1TAB21 PO; -MILK200C4 PO
[2018-08-24] MEDS ORDERED: normal saline 1000ML IV soln IVB ONE (12:30)
[2018-08-24] MEDS ORDERED: pantoprazole 40 MG vial IV ONE (12:30)
[2018-08-24] MEDS ORDERED: ondansetron/PF 4mg/2ml inj IV ONE (12:40)
[2018-08-24 13:06] LABS: BASOPHILS % (AUTO) 0.4 % (0-1); EOSINOPHILS # (AUTO) 0.9 X10'3 (0-0.9); HEMATOCRIT 45.5 % (42.0-52.0); HEMOGLOBIN 14.8 g/dl (14.0-17.9); LYMPHOCYTES # (AUTO) 2.2 X10'3 (1.1-4.8); LYMPHOCYTES % (AUTO) 22.1 % (21-51); MEAN CORPUSCULAR HEMOGLOBIN 25.5 PG (27.0-31.0); MEAN CORPUSCULAR HGB CONC 32.4 % (33.0-36.5); MEAN CORPUSCULAR VOLUME 78.8 FL (78-98); MEAN PLATELET VOLUME 7.4 FL (7.4-10.4); MONOCYTES # (AUTO) 0.8 X10'3 (0-0.9); MONOCYTES % (AUTO) 7.9 % (2-12); NEUTROPHILS # (AUTO) 6.1 X10'3 (1.8-7.7); NEUTROPHILS % (AUTO) 60.6 % (42-75); PLATELET COUNT 517 X10'3 (140-440); RED BLOOD COUNT 5.77 X10'6 (4.70-6.10); WHITE BLOOD COUNT 10.1 X10'3 (4.5-11.0)
[2018-08-24 13:16] LABS: PROTHROMBIN TIME 10.5 SECONDS (9.0-12.0)
[2018-08-24 13:18] LABS: ALANINE AMINOTRANSFERASE 28 U/L (12-78); ALBUMIN 4.4 G/DL (3.4-5.0); ALBUMIN/GLOBULIN RATIO 0.9 (1.1-1.5); ALKALINE PHOSPHATASE 83 IU/L (46-116); ANION GAP 13 (8-16); ASPARTATE AMINO TRANSFERASE 12 U/L (10-37); BILIRUBIN,TOTAL 0.4 MG/DL (0.1-1.0); BLOOD UREA NITROGEN 17 MG/DL (7-18); BUN/CREATININE RATIO 13.4 (5.4-32.0); CHLORIDE 97 MMOL/L (99-107); CREATININE 1.27 MG/DL (0.60-1.10); GLUCOSE 238 MG/DL (70-104); POTASSIUM 3.7 MMOL/L (3.5-5.1); SODIUM 135 MMOL/L (135-145); TOTAL CARBON DIOXIDE 24.9 MMOL/L (24-32); TOTAL PROTEIN 9.1 G/DL (6.4-8.2); eGFR 57 ML/MIN
[2018-08-24] MEDS ORDERED: fentaNYL/PF 50MCG/1 ML 2ML syringe ONE (15:28)
[2018-08-24] MEDS ORDERED: LIDOcaine Viscous 15ml cup ONE (15:29)
[2018-08-24] MEDS ORDERED: MIDAZolam 5mg/5ml vial ONE (15:29)
[2018-08-24] MEDS ORDERED: dextrose ORAL solution 15 GM/59 ML bottle PO PRN ×2 (15:35)
[2018-08-24] MEDS ORDERED: dextrose 50%-water 50ml dispensing syringe IV PRN ×2 (15:35)
[2018-08-24] MEDS ORDERED: magnesium Cl slow-release 64mg tablet PO PRN (15:35)
[2018-08-24] MEDS ORDERED: insulin Lispro (HumaLOG) vial - multi-dose SQ SCH (15:35)
[2018-08-24] MEDS ORDERED: magnesium 4gm in 100ml NS 100 ML IV PRN (15:35)
[2018-08-24] MEDS ORDERED: potassium Cl 20 mEq SR tablet PO PRN ×2 (15:35)
[2018-08-24] MEDS ORDERED: acetaminophen 325mg tablet PO PRN (15:35)
[2018-08-24] MEDS ORDERED: ondansetron/PF 4mg/2ml inj IV PRN (15:35)
[2018-08-24] MEDS ORDERED: MESSAGE TO PHARMACY PO ONE (15:35)
[2018-08-24] MEDS ORDERED: glucagon, human recombinant 1mg kit SUBCUT PRN (15:35)
[2018-08-24] MEDS ORDERED: potassium Cl 40MEQ/NS 500ml 500 ML IV PRN ×2 (15:35)
[2018-08-24] MEDS ORDERED: metoclopramide 10mg tablet PO ONE (15:35)
[2018-08-24] MEDS ORDERED: magnesium 1gm/100ml D5W IVPB 100 ML IV PRN (15:35)
[2018-08-24] MEDS ORDERED: montelukast 10mg tablet PO PRN (17:15)
[2018-08-24] MEDS: normal saline 1000ml 1,000 ML IV SCH (17:24)
[2018-08-24] MEDS: HYDROcodone/acetaminophen 5mg/325mg tablet PO PRN (17:30)
[2018-08-24] MEDS: morphine 2 MG/ML inj. syringe IV PRN (19:19)
[2018-08-24] MEDS ORDERED: non-formulary drug (Ziprasidone Hcl (Geodon) 1 CAP) PO SCH (20:00)
[2018-08-24] MEDS: pantoprazole 40mg Tablet.DR PO SCH (20:24)
[2018-08-24] MEDS: ziprasidone 20mg capsule PO SCH (20:25)
[2018-08-24] MEDS: heparin, porcine 5000 units/ml vial SQ SCH (20:25)
[2018-08-24] MEDS: sucralfate 1 gm tablet PO SCH (20:26)
[2018-08-24] MEDS ORDERED: insulin glargine (Lantus) pen - multi-dose SQ SCH (21:00)
[2018-08-24] MEDS ORDERED: temazepam 15mg capsule PO PRN (21:00)
[2018-08-24] MEDS ORDERED: nortriptyline 25mg capsule PO SCH (21:00)
[2018-08-24] MEDS ORDERED: ROPINIRole 1mg tablet PO SCH (21:00)
[2018-08-25] VITALS: BP 124/80
[2018-08-25] MEDS: normal saline 1000ml 1,000 ML IV SCH ×2 (03:45→10:48)
[2018-08-25 04:49] LABS: BASOPHILS # (AUTO) 0.1 X10'3 (0-0.2); EOSINOPHILS # (AUTO) 0.7 X10'3 (0-0.9); HEMATOCRIT 35.1 % (42.0-52.0); HEMOGLOBIN 11.5 g/dl (14.0-17.9); LYMPHOCYTES # (AUTO) 1.7 X10'3 (1.1-4.8); LYMPHOCYTES % (AUTO) 30.6 % (21-51); MEAN CORPUSCULAR HEMOGLOBIN 25.7 PG (27.0-31.0); MEAN CORPUSCULAR HGB CONC 32.6 % (33.0-36.5); MEAN CORPUSCULAR VOLUME 78.6 FL (78-98); MONOCYTES # (AUTO) 0.4 X10'3 (0-0.9); MONOCYTES % (AUTO) 7.9 % (2-12); NEUTROPHILS # (AUTO) 2.6 X10'3 (1.8-7.7); NEUTROPHILS % (AUTO) 47.5 % (42-75); PLATELET COUNT 402 X10'3 (140-440); RED BLOOD COUNT 4.47 X10'6 (4.70-6.10); RED CELL DISTRIBUTION WIDTH 17.9 % (11.5-14.5); WHITE BLOOD COUNT 5.5 X10'3 (4.5-11.0)
[2018-08-25] MEDS: morphine 2 MG/ML inj. syringe IV PRN ×2 (05:06→12:15)
[2018-08-25 05:26] LABS: ALANINE AMINOTRANSFERASE 21 U/L (12-78); ALBUMIN/GLOBULIN RATIO 0.9 (1.1-1.5); ALKALINE PHOSPHATASE 70 IU/L (46-116); ANION GAP 8 (8-16); ASPARTATE AMINO TRANSFERASE 10 U/L (10-37); BILIRUBIN,TOTAL 0.4 MG/DL (0.1-1.0); BLOOD UREA NITROGEN 9 MG/DL (7-18); BUN/CREATININE RATIO 10.5 (5.4-32.0); CALCIUM 8.1 MG/DL (8.5-10.1); CHLORIDE 109 MMOL/L (99-107); CREATININE 0.86 MG/DL (0.60-1.10); GLUCOSE 136 MG/DL (70-104); MAGNESIUM 1.7 MG/DL (1.5-2.4); POTASSIUM 3.7 MMOL/L (3.5-5.1); SODIUM 142 MMOL/L (135-145); TOTAL CARBON DIOXIDE 25.3 MMOL/L (24-32); TOTAL PROTEIN 6.5 G/DL (6.4-8.2); eGFR 89 ML/MIN
[2018-08-25 06:59] VITALS: BP 138/82
[2018-08-25] MEDS ORDERED: non-formulary drug (Rosuvastatin Calcium 1 TAB) PO SCH (08:00)
[2018-08-25] MEDS ORDERED: K and/or MAG REPLACEMENT MC SCH (08:00)
[2018-08-25] MEDS ORDERED: atorvastatin 20mg tablet PO SCH (08:00)
[2018-08-25] MEDS ORDERED: lisinopril 5mg tablet PO SCH (08:00)
[2018-08-25] MEDS ORDERED: levoTHYROXINE 75mcg tablet PO SCH (08:00)
[2018-08-25] MEDS ORDERED: metoprolol succinate 25mg (24-HOUR) SR. Tablet PO SCH (08:00)
[2018-08-25] MEDS: ziprasidone 20mg capsule PO SCH (08:46)
[2018-08-25] MEDS: pantoprazole 40mg Tablet.DR PO SCH (08:48)
[2018-08-25] MEDS: heparin, porcine 5000 units/ml vial SQ SCH (08:49)
[2018-08-25] MEDS: sucralfate 1 gm tablet PO SCH ×2 (08:54→12:14)
[2018-08-25 12:08] VITALS: BP 135/92
[2018-08-25] MEDS: HYDROcodone/acetaminophen 5mg/325mg tablet PO PRN (15:19)
== END 2018-08-25 16:13 | disposition home or self-care (01) | DRG 392 ==
LOC: ER 11:27 → ED HOLD 15:33 → SUR 3N 19:10
PROVIDERS: ADMIT Internal Medicine; ATTEND Family Medicine
PROC: 0D758ZZ Dilation of Esophagus, Via Natural or Artificial Opening Endoscopic (ICD-10-PCS; principal; 2018-08-24)
PROC: 0DB58ZX Excision of Esophagus, Via Natural or Artificial Opening Endoscopic, Diagnostic (ICD-10-PCS; 2018-08-24)
DX: K22.2 Esophageal obstruction (principal); R45.851 Suicidal ideations; F32.9 Major depressive disorder, single episode, unspecified; F20.9 Schizophrenia, unspecified; F43.10 Post-traumatic stress disorder, unspecified; G25.81 Restless legs syndrome; E03.9 Hypothyroidism, unspecified; E11.65 Type 2 diabetes mellitus with hyperglycemia; E78.00 Pure hypercholesterolemia, unspecified; E78.5 Hyperlipidemia, unspecified; F12.10 Cannabis abuse, uncomplicated; R13.10 Dysphagia, unspecified; G89.4 Chronic pain syndrome; I10 Essential (primary) hypertension; I25.10 Atherosclerotic heart disease of native coronary artery without angina pectoris; J45.909 Unspecified asthma, uncomplicated; K21.9 Gastro-esophageal reflux disease without esophagitis; K29.70 Gastritis, unspecified, without bleeding; K44.9 Diaphragmatic hernia without obstruction or gangrene; Z72.89 Other problems related to lifestyle; Z76.5 Malingerer [conscious simulation]; Z79.890 Hormone replacement therapy; Z95.5 Presence of coronary angioplasty implant and graft; Z88.0 Allergy status to penicillin; Z91.018 Allergy to other foods; Z90.49 Acquired absence of other specified parts of digestive tract; Z79.899 Other long term (current) drug therapy; Z71.51 Drug abuse counseling and surveillance of drug abuser; Z71.41 Alcohol abuse counseling and surveillance of alcoholic; Z71.6 Tobacco abuse counseling
CPT/HCPCS: 36415; 43239; 43249; 80053; 82948; 83735; 85025; 85610; 87070; 92616; 96361; 96374; 96375; 99152; 99285; A4620; C1726; C9113; G0378; J1644; J1815; J2250; J2270; J2405; J3010; J7030; J8597

== ENCOUNTER 2018-09-22 11:31 | Emergency (ER) | payer MEDICARE, MEDICAID ==
[~2018-09-22] VITALS: Ht 172.7 cm; Wt 70.0 kg
[2018-09-22] MEDS ORDERED: normal saline 1000ML IV soln IVB ONE (11:50)
[2018-09-22 12:24] LABS: BASOPHILS # (AUTO) 0.1 X10'3 (0-0.2); BASOPHILS % (AUTO) 1.2 % (0-1); EOSINOPHILS # (AUTO) 0.7 X10'3 (0-0.9); EOSINOPHILS % (AUTO) 9.2 % (0-6); HEMATOCRIT 41.2 % (42.0-52.0); HEMOGLOBIN 13.5 g/dl (14.0-17.9); LYMPHOCYTES # (AUTO) 1.6 X10'3 (1.1-4.8); LYMPHOCYTES % (AUTO) 21.4 % (21-51); MEAN CORPUSCULAR HEMOGLOBIN 25.2 PG (27.0-31.0); MEAN CORPUSCULAR HGB CONC 32.7 % (33.0-36.5); MEAN CORPUSCULAR VOLUME 77.1 FL (78-98); MEAN PLATELET VOLUME 7.1 FL (7.4-10.4); MONOCYTES # (AUTO) 0.5 X10'3 (0-0.9); MONOCYTES % (AUTO) 6.6 % (2-12); NEUTROPHILS # (AUTO) 4.6 X10'3 (1.8-7.7); NEUTROPHILS % (AUTO) 61.6 % (42-75); PLATELET COUNT 522 X10'3 (140-440); RED BLOOD COUNT 5.35 X10'6 (4.70-6.10); RED CELL DISTRIBUTION WIDTH 17.4 % (11.5-14.5); WHITE BLOOD COUNT 7.5 X10'3 (4.5-11.0)
[2018-09-22 12:40] LABS: ALANINE AMINOTRANSFERASE 23 U/L (12-78); ALBUMIN 4.1 G/DL (3.4-5.0); ALKALINE PHOSPHATASE 76 IU/L (46-116); ANION GAP 11 (8-16); ASPARTATE AMINO TRANSFERASE 12 U/L (10-37); BILIRUBIN,TOTAL 0.5 MG/DL (0.1-1.0); BLOOD UREA NITROGEN 19 MG/DL (7-18); BUN/CREATININE RATIO 18.1 (5.4-32.0); CALCIUM 9.7 MG/DL (8.5-10.1); CHLORIDE 101 MMOL/L (99-107); CREATININE 1.05 MG/DL (0.60-1.10); GLUCOSE 165 MG/DL (70-104); POTASSIUM 4.1 MMOL/L (3.5-5.1); SODIUM 136 MMOL/L (135-145); TOTAL CARBON DIOXIDE 23.9 MMOL/L (24-32); TOTAL PROTEIN 8.3 G/DL (6.4-8.2); eGFR 71 ML/MIN
[2018-09-22 13:50] VITALS: BP 132/89
[2018-09-22] MEDS ORDERED: morphine 4 MG/ML inj SYRINge IV ONE (13:50)
[2018-09-22] MEDS ORDERED: ondansetron/PF 4mg/2ml inj IV ONE (13:50)
[2018-09-22] MEDS ORDERED: fentaNYL/PF 50MCG/1 ML 2ML syringe ONE (14:02)
[2018-09-22] MEDS ORDERED: LIDOcaine Viscous 15ml cup ONE (14:02)
[2018-09-22] MEDS ORDERED: MIDAZolam 5mg/5ml vial ONE (14:02)
[2018-09-22] MEDS ORDERED: triamcinolone acetonide 40mg/ml inj ONE (14:59)
[2018-09-22 15:20] VITALS: BP 147/101
[2018-09-22 15:30] VITALS: BP 141/94
[2018-09-22 15:40] VITALS: BP 134/89
[2018-09-22 15:50] VITALS: BP 124/78
[2018-09-22 16:20] VITALS: BP 114/87
== END 2018-09-22 16:33 | disposition home or self-care (01) ==
LOC: ER 11:32
DX: K22.2 Esophageal obstruction (principal); I25.10 Atherosclerotic heart disease of native coronary artery without angina pectoris; E78.00 Pure hypercholesterolemia, unspecified; I10 Essential (primary) hypertension; G89.29 Other chronic pain; F12.90 Cannabis use, unspecified, uncomplicated; Z90.49 Acquired absence of other specified parts of digestive tract; Z98.890 Other specified postprocedural states; Z88.0 Allergy status to penicillin; Z91.018 Allergy to other foods; Z79.899 Other long term (current) drug therapy
CPT/HCPCS: 36415; 43243; 43248; 80053; 85025; 93005; 96374; 96375; 99152; 99153; 99285; J2250; J2270; J2405; J3010; J3301; J7030; 96361; 99284; A4620

== ENCOUNTER 2018-11-08 06:49 | Day surgery (SDC) | payer MEDICARE, MEDICAID ==
[2018-11-08] VITALS (9 sets, daily range): BP systolic 127–176; BP diastolic 82–117
[~2018-11-08] VITALS: Ht 172.7 cm; Wt 72.0 kg
[2018-11-08] MEDS ORDERED: diphenhydrAMINE 25mg capsule PO PRN (07:30)
[2018-11-08] MEDS ORDERED: normal saline 1000ml 1,000 ML IV SCH (07:30)
[2018-11-08] MEDS ORDERED: sod bicarbonate 150mEq in D5W 1,150 ML IV ONE (07:30)
[2018-11-08] MEDS ORDERED: ASPI81TA52 PO (07:33)
[2018-11-08] MEDS ORDERED: NITR0.4T51 SL (07:33)
[2018-11-08] MEDS ORDERED: CLOP75TA15 PO (07:33)
[2018-11-08] MEDS ORDERED: LEVO100T PO (07:40)
[2018-11-08] MEDS ORDERED: BUDE10.2 INH (07:40)
[2018-11-08] MEDS ORDERED: ESOM40CA30 PO (07:40)
[2018-11-08] MEDS ORDERED: ALBU18HF2 INH (07:40)
[2018-11-08] MEDS ORDERED: METF500T PO (07:46)
[2018-11-08] MEDS ORDERED: CLON-528 PO (07:46)
[2018-11-08 07:48] LABS: BASOPHILS # (AUTO) 0.1 X10'3 (0-0.2); BASOPHILS % (AUTO) 0.8 % (0-1); EOSINOPHILS # (AUTO) 0.6 X10'3 (0-0.9); EOSINOPHILS % (AUTO) 8.4 % (0-6); HEMATOCRIT 42.8 % (42.0-52.0); HEMOGLOBIN 13.9 g/dl (14.0-17.9); LYMPHOCYTES # (AUTO) 1.7 X10'3 (1.1-4.8); LYMPHOCYTES % (AUTO) 22.4 % (21-51); MEAN CORPUSCULAR HEMOGLOBIN 24.4 PG (27.0-31.0); MEAN CORPUSCULAR HGB CONC 32.4 % (33.0-36.5); MEAN CORPUSCULAR VOLUME 75.4 FL (78-98); MEAN PLATELET VOLUME 7.3 FL (7.4-10.4); MONOCYTES # (AUTO) 0.6 X10'3 (0-0.9); MONOCYTES % (AUTO) 7.7 % (2-12); NEUTROPHILS # (AUTO) 4.7 X10'3 (1.8-7.7); NEUTROPHILS % (AUTO) 60.7 % (42-75); PLATELET COUNT 445 X10'3 (140-440); RED BLOOD COUNT 5.68 X10'6 (4.70-6.10); RED CELL DISTRIBUTION WIDTH 17.9 % (11.5-14.5); WHITE BLOOD COUNT 7.7 X10'3 (4.5-11.0)
[2018-11-08] MEDS ORDERED: ROSU20TA PO (07:50)
[2018-11-08] MEDS ORDERED: CYCL-394 PO (07:50)
[2018-11-08 08:01] LABS: ALBUMIN 4.2 G/DL (3.4-5.0); ANION GAP 15 (8-16); BLOOD UREA NITROGEN 16 MG/DL (7-18); BUN/CREATININE RATIO 13.8 (5.4-32.0); CALCIUM 9.5 MG/DL (8.5-10.1); CHLORIDE 98 MMOL/L (99-107); CREATININE 1.16 MG/DL (0.60-1.10); GLUCOSE 183 MG/DL (70-104); MAGNESIUM 1.7 MG/DL (1.5-2.4); POTASSIUM 3.7 MMOL/L (3.5-5.1); SODIUM 137 MMOL/L (135-145); TOTAL CARBON DIOXIDE 24.3 MMOL/L (24-32); eGFR 63 ML/MIN
[2018-11-08 08:18] LABS: PROTHROMBIN TIME 10.3 SECONDS (9.0-12.0)
[2018-11-08] MEDS ORDERED: midazolam 2 mg/2 ml injection ONE ×3 (09:07→10:08)
[2018-11-08] MEDS ORDERED: LIDOcaine 1% (10mg/ml)w/preservative injection 20ml MDV ONE (09:07)
[2018-11-08] MEDS ORDERED: fentaNYL/PF 50MCG/1 ML 2ML syringe ONE (09:07)
[2018-11-08] MEDS ORDERED: iohexol 350MG/ML 100ml bottle IV ONE ×2 (09:08→10:04)
[2018-11-08] MEDS ORDERED: iohexol 350 MG/ML 50ML vial IV ONE ×2 (09:08→10:34)
[2018-11-08] MEDS ORDERED: heparin 1,000unit/ml 10ml vial 10 ML ONE (09:58)
[2018-11-08] MEDS ORDERED: clopidogrel 300mg tablet ONE (10:55)
[2018-11-08] MEDS ORDERED: cloNIDine 0.1 mg tablet PO SCH (11:30)
[2018-11-08] MEDS ORDERED: HYDROcodone/acetaminophen 10/325mg tab PO PRN (11:50)
[2018-11-08] MEDS ORDERED: HYDROcodone/acetaminophen 5mg/325mg tablet PO PRN (11:50)
[2018-11-08] MEDS ORDERED: acetaminophen 325mg tablet PO PRN (11:50)
== END 2018-11-08 14:45 | disposition home or self-care (01) ==
LOC: SSTAY O 06:49
PROVIDERS: ATTEND Internal Medicine Cardiovascular Disease
DX: I25.118 Atherosclerotic heart disease of native coronary artery with other forms of angina pectoris (principal); E11.9 Type 2 diabetes mellitus without complications; I10 Essential (primary) hypertension; E78.5 Hyperlipidemia, unspecified; K21.9 Gastro-esophageal reflux disease without esophagitis; J44.9 Chronic obstructive pulmonary disease, unspecified; N19 Unspecified kidney failure; F43.12 Post-traumatic stress disorder, chronic; E03.9 Hypothyroidism, unspecified; M19.90 Unspecified osteoarthritis, unspecified site; F43.10 Post-traumatic stress disorder, unspecified; F32.9 Major depressive disorder, single episode, unspecified; F41.8 Other specified anxiety disorders; Z87.820 Personal history of traumatic brain injury; Z86.74 Personal history of sudden cardiac arrest; Z87.891 Personal history of nicotine dependence; Z87.09 Personal history of other diseases of the respiratory system; Z72.89 Other problems related to lifestyle; Z89.021 Acquired absence of right finger(s); Z95.828 Presence of other vascular implants and grafts; Z88.0 Allergy status to penicillin; Z91.018 Allergy to other foods; Z79.82 Long term (current) use of aspirin; Z90.49 Acquired absence of other specified parts of digestive tract; Z95.5 Presence of coronary angioplasty implant and graft; Z79.84 Long term (current) use of oral hypoglycemic drugs; Z79.899 Other long term (current) drug therapy; Z98.890 Other specified postprocedural states; Z82.49 Family history of ischemic heart disease and other diseases of the circulatory system; Z83.3 Family history of diabetes mellitus
CPT/HCPCS: 36415; 80048; 82948; 83735; 85025; 85610; 92920; 93005; 93458; 99152; 99153; A6257; C1760; C1874; C9600; J1644; J2001; J2250; J3010; J7030; Q0163; Q9967; C1725; C1769; C1894; C9601

== ENCOUNTER 2018-11-12 12:22 | Emergency (ER) | payer MEDICARE, MEDICAID ==
[~2018-11-12] VITALS: Ht 172.7 cm; Wt 72.0 kg
[~2018-11-12 12:22] MED LIST changes: +ALBU18HF2 INH; +ASPI81TA52 PO; +BUDE10.2 INH; +CLON-528 PO; +CLOP75TA15 PO; +CYCL-394 PO; +ESOM40CA30 PO; -FENO134C9 PO; +LEVO100T PO; +METF500T PO; +NITR0.4T51 SL; -PANT40TA4 PO; -ROPI1TAB2 PO; +ROSU20TA PO; -ROSU20TA30 PO; -SITA1TAB2 PO; -SUCR1TAB PO
[2018-11-12] MEDS ORDERED: ondansetron/PF 4mg/2ml inj IV ONE (12:45)
[2018-11-12] MEDS ORDERED: morphine 4 MG/ML inj SYRINge IV PRN (12:45)
[2018-11-12] MEDS ORDERED: normal saline 1000ML IV soln IVB ONE (12:45)
[2018-11-12 13:05] LABS: BASOPHILS # (AUTO) 0.1 X10'3 (0-0.2); BASOPHILS % (AUTO) 0.8 % (0-1); EOSINOPHILS # (AUTO) 0.6 X10'3 (0-0.9); EOSINOPHILS % (AUTO) 7.4 % (0-6); HEMATOCRIT 41.4 % (42.0-52.0); HEMOGLOBIN 13.5 g/dl (14.0-17.9); LYMPHOCYTES # (AUTO) 1.9 X10'3 (1.1-4.8); LYMPHOCYTES % (AUTO) 24.8 % (21-51); MEAN CORPUSCULAR HEMOGLOBIN 24.4 PG (27.0-31.0); MEAN CORPUSCULAR HGB CONC 32.6 g/dL (33.0-36.5); MEAN CORPUSCULAR VOLUME 74.7 FL (78-98); MEAN PLATELET VOLUME 7.1 FL (7.4-10.4); MONOCYTES # (AUTO) 0.6 X10'3 (0-0.9); MONOCYTES % (AUTO) 8.6 % (2-12); NEUTROPHILS # (AUTO) 4.4 X10'3 (1.8-7.7); NEUTROPHILS % (AUTO) 58.4 % (42-75); PLATELET COUNT 483 X10'3 (140-440); RED BLOOD COUNT 5.54 X10'6 (4.70-6.10); RED CELL DISTRIBUTION WIDTH 18.3 % (11.5-14.5); WHITE BLOOD COUNT 7.5 X10'3 (4.5-11.0)
[2018-11-12 13:20] LABS: ALANINE AMINOTRANSFERASE 29 U/L (12-78); ALBUMIN 3.9 G/DL (3.4-5.0); ALBUMIN/GLOBULIN RATIO 0.8 (1.1-1.5); ALKALINE PHOSPHATASE 88 IU/L (46-116); ANION GAP 16 (8-16); ASPARTATE AMINO TRANSFERASE 16 U/L (10-37); BILIRUBIN,TOTAL 0.5 MG/DL (0.1-1.0); BLOOD UREA NITROGEN 19 MG/DL (7-18); BUN/CREATININE RATIO 15.6 (5.4-32.0); CALCIUM 9.3 MG/DL (8.5-10.1); CHLORIDE 99 MMOL/L (99-107); CREATININE 1.22 MG/DL (0.60-1.10); GLUCOSE 149 MG/DL (70-104); SODIUM 136 MMOL/L (135-145); TOTAL CARBON DIOXIDE 20.8 MMOL/L (24-32); TOTAL PROTEIN 8.6 G/DL (6.4-8.2); eGFR 60 ML/MIN
[2018-11-12 14:39] VITALS: BP 127/89
[2018-11-12] MEDS ORDERED: MIDAZolam 5mg/5ml vial ONE (14:43)
[2018-11-12] MEDS ORDERED: fentaNYL/PF 50MCG/1 ML 2ML syringe ONE (14:43)
[2018-11-12] MEDS ORDERED: LIDOcaine Viscous 15ml cup ONE (14:43)
--- NOTE | 2018-11-12 14:45 | NUR ---
PT WENT GI LAB
[2018-11-12 15:25] VITALS: BP 121/65
[2018-11-12 15:35] VITALS: BP 135/60
[2018-11-12 15:45] VITALS: BP 125/79
[2018-11-12 15:55] VITALS: BP 139/72
== END 2018-11-12 16:50 | disposition home or self-care (01) ==
LOC: ER 12:23
DX: K22.2 Esophageal obstruction (principal); I25.10 Atherosclerotic heart disease of native coronary artery without angina pectoris; E78.00 Pure hypercholesterolemia, unspecified; I10 Essential (primary) hypertension; I25.2 Old myocardial infarction; E11.9 Type 2 diabetes mellitus without complications; G89.29 Other chronic pain; F12.90 Cannabis use, unspecified, uncomplicated; Z95.5 Presence of coronary angioplasty implant and graft; Z90.49 Acquired absence of other specified parts of digestive tract; Z98.890 Other specified postprocedural states; Z79.899 Other long term (current) drug therapy; Z88.0 Allergy status to penicillin; Z79.82 Long term (current) use of aspirin
CPT/HCPCS: 36415; 43239; 43249; 71045; 80053; 85025; 93005; 96374; 96375; 99152; 99285; J2250; J2270; J2405; J3010; J7030; 88305; 96361; C1726

== ENCOUNTER 2018-12-01 06:28 | Day surgery (SDC) | payer MEDICARE, MEDICAID ==
[~2018-12-01] VITALS: Ht 172.7 cm; Wt 71.4 kg
[2018-12-01 06:37] VITALS: BP 137/89
[2018-12-01] MEDS ORDERED: fentaNYL/PF 50MCG/1 ML 2ML syringe ONE (07:06)
[2018-12-01] MEDS ORDERED: LIDOcaine Viscous 15ml cup ONE (07:06)
[2018-12-01] MEDS ORDERED: MIDAZolam 5mg/5ml vial ONE (07:06)
[2018-12-01] MEDS ORDERED: triamcinolone acetonide 40mg/ml inj ONE (08:01)
[2018-12-01 08:23] VITALS: BP 154/96
[2018-12-01 08:33] VITALS: BP 138/90
[2018-12-01 08:43] VITALS: BP 131/87
[2018-12-01 08:53] VITALS: BP 136/91
== END 2018-12-01 08:57 | disposition home or self-care (01) ==
LOC: GI LAB 06:28
PROVIDERS: ATTEND Internal Medicine Gastroenterology
DX: K22.2 Esophageal obstruction (principal); K44.9 Diaphragmatic hernia without obstruction or gangrene
CPT/HCPCS: 43249; 99153; G0500; J2250; J3010; J3301; J7030; 99152; A4620; C1726

== ENCOUNTER 2019-01-05 10:00 | Emergency (ER) | payer MEDICARE, MEDICAID ==
[~2019-01-05] VITALS: Ht 172.7 cm; Wt 71.4 kg
[~2019-01-05 10:00] MED LIST changes: -ROSU20TA PO; +ROSU20TA2 PO
[2019-01-05] MEDS ORDERED: LORazepam 2 mg/ml vial IV ONE (11:20)
[2019-01-05] MEDS ORDERED: normal saline 1000ML IV soln IVB ONE (11:20)
[2019-01-05] MEDS ORDERED: pantoprazole 40 MG vial IV ONE (11:20)
[2019-01-05] MEDS ORDERED: famotidine/PF 10 mg/ml inj IV ONE (11:20)
--- NOTE | 2019-01-05 12:13 | NUR ---
SECOND CALL PLACED TO DR. REYES
[2019-01-05 14:15] VITALS: BP 145/83
[2019-01-05] MEDS ORDERED: fentaNYL/PF 50MCG/1 ML 2ML syringe ONE (14:20)
[2019-01-05] MEDS ORDERED: MIDAZolam 5mg/5ml vial ONE (14:20)
[2019-01-05] MEDS ORDERED: LIDOcaine Viscous 15ml cup ONE (14:20)
[2019-01-05 14:43] VITALS: BP 165/83
[2019-01-05 14:53] VITALS: BP 123/78
[2019-01-05 15:03] VITALS: BP 133/75
[2019-01-05 15:35] VITALS: BP 133/91
== END 2019-01-05 15:39 | disposition home or self-care (01) ==
LOC: ER 10:01
DX: K22.2 Esophageal obstruction (principal); I25.10 Atherosclerotic heart disease of native coronary artery without angina pectoris; E78.00 Pure hypercholesterolemia, unspecified; I10 Essential (primary) hypertension; I25.2 Old myocardial infarction; E11.9 Type 2 diabetes mellitus without complications; G89.29 Other chronic pain; F12.90 Cannabis use, unspecified, uncomplicated; Z98.61 Coronary angioplasty status; Z90.49 Acquired absence of other specified parts of digestive tract; Z98.890 Other specified postprocedural states; Z88.0 Allergy status to penicillin; Z91.018 Allergy to other foods; Z98.2 Presence of cerebrospinal fluid drainage device; Z79.84 Long term (current) use of oral hypoglycemic drugs; Z79.899 Other long term (current) drug therapy
CPT/HCPCS: 43239; 43249; 96374; 96375; 99152; 99285; C9113; J2060; J2250; J3010; J3490; J7030; 99153; A4620; C1726

== ENCOUNTER 2019-01-09 07:25 | Day surgery (SDC) | payer MEDICARE, MEDICAID ==
[~2019-01-09] VITALS: Ht 172.7 cm; Wt 71.4 kg
[2019-01-09 07:34] VITALS: BP 133/92
[2019-01-09] MEDS ORDERED: fentaNYL/PF 50MCG/1 ML 2ML syringe ONE (07:52)
[2019-01-09] MEDS ORDERED: triamcinolone acetonide 40mg/ml inj ONE (07:52)
[2019-01-09] MEDS ORDERED: LIDOcaine Viscous 15ml cup ONE (07:52)
[2019-01-09] MEDS ORDERED: MIDAZolam 5mg/5ml vial ONE (07:52)
[2019-01-09 09:09] VITALS: BP 152/59
[2019-01-09 09:19] VITALS: BP 116/71
[2019-01-09 09:29] VITALS: BP 111/66
[2019-01-09 09:39] VITALS: BP 104/57
== END 2019-01-09 10:09 | disposition home or self-care (01) ==
LOC: GI LAB 07:25
PROVIDERS: ATTEND Internal Medicine Gastroenterology
DX: K22.2 Esophageal obstruction (principal); I25.10 Atherosclerotic heart disease of native coronary artery without angina pectoris; Z79.82 Long term (current) use of aspirin; Z95.5 Presence of coronary angioplasty implant and graft
CPT/HCPCS: 43236; 43249; 99152; J2250; J3010; J3301; J7030; 99153; A4620; C1726

== ENCOUNTER 2019-07-16 19:18 | Inpatient (IN) | payer MEDICARE, MEDICAID ==
[2019-07-16] VITALS (7 sets, daily range): BP systolic 95–117; BP diastolic 58–74
[~2019-07-16] VITALS: Ht 172.7 cm; Wt 80.2 kg
[~2019-07-16 19:18] MED LIST changes: -ESOM40CA30 PO; +ESOM40CA49 PO
[2019-07-16] MEDS ORDERED: normal saline 1000ML IV soln IV ONE (19:25)
[2019-07-16] MEDS ORDERED: tranexamic acid 100mg/ml inj. IV ONE (19:25)
[2019-07-16] MEDS ORDERED: pantoprazole 40 MG vial IV ONE (19:25)
--- NOTE | 2019-07-16 19:43 | NUR ---
PT CAREGIVER MIRTHA NICO AT BEDSIDE, CONTACT INFO [phone]. OK TO SHARE INFORMATION OVER THE PHONE. MIRTHA IS AVAILABLE TO PICK PT UP AT [place].
[2019-07-16 19:47] LABS: BASOPHILS # (AUTO) 0.1 X10'3 (0-0.2); BASOPHILS % (AUTO) 0.5 % (0-1); EOSINOPHILS # (AUTO) 0.3 X10'3 (0-0.9); EOSINOPHILS % (AUTO) 1.9 % (0-6); HEMATOCRIT 35.2 % (42.0-52.0); HEMOGLOBIN 11.5 g/dl (14.0-17.9); LYMPHOCYTES # (AUTO) 2.6 X10'3 (1.1-4.8); LYMPHOCYTES % (AUTO) 18.7 % (21-51); MEAN CORPUSCULAR HEMOGLOBIN 25.7 PG (27.0-31.0); MEAN CORPUSCULAR HGB CONC 32.8 g/dL (33.0-36.5); MEAN CORPUSCULAR VOLUME 78.5 FL (78-98); MEAN PLATELET VOLUME 7.3 FL (7.4-10.4); MONOCYTES # (AUTO) 1.2 X10'3 (0-0.9); MONOCYTES % (AUTO) 8.6 % (2-12); NEUTROPHILS # (AUTO) 9.8 X10'3 (1.8-7.7); NEUTROPHILS % (AUTO) 70.3 % (42-75); PLATELET COUNT 330 X10'3 (140-440); RED BLOOD COUNT 4.48 X10'6 (4.70-6.10); RED CELL DISTRIBUTION WIDTH 19.8 % (11.5-14.5); WHITE BLOOD COUNT 13.9 X10'3 (4.5-11.0)
[2019-07-16] MEDS ORDERED: ondansetron/PF 4mg/2ml inj IV ONE (19:50)
--- NOTE | 2019-07-16 19:51 | NUR ---
PER PT NO BLOOD DUE TO PENTECOSTALISM BELIEFS, MONA AT BEDSIDE WITH MYSELF TO CONFIRM WITH PATIENT NO BLOOD. DESPITE EDUCATING THE PATIENT ON THE RISK OF NOT RECEIVING EMERGENT BLOOD IF NECESSARY THE PATIENT CONTINUES TO REFUSE. NO BLOOD BAND PLACED ON THE PATIENT.
[2019-07-16 19:53] LABS: PARTIAL THROMBOPLASTIN TIME 23 SECONDS (22-32)
[2019-07-16 19:55] LABS: ALANINE AMINOTRANSFERASE 32 U/L (12-78); ALBUMIN/GLOBULIN RATIO 0.9 (1.1-1.5); ALKALINE PHOSPHATASE 48 IU/L (46-116); ANION GAP 16 (8-16); ASPARTATE AMINO TRANSFERASE 15 U/L (10-37); BILIRUBIN,TOTAL 0.3 MG/DL (0.1-1.0); BLOOD UREA NITROGEN 30 MG/DL (7-18); BUN/CREATININE RATIO 23.8 (5.4-32.0); CHLORIDE 99 MMOL/L (99-107); CREATININE 1.26 MG/DL (0.60-1.10); GLUCOSE 259 MG/DL (70-104); SODIUM 135 MMOL/L (135-145); TOTAL CARBON DIOXIDE 20.3 MMOL/L (24-32); TOTAL PROTEIN 6.3 G/DL (6.4-8.2); eGFR 57 ML/MIN
[2019-07-16] MEDS: pantoprazole 40MG/NS 100ML BAG 100 ML IV SCH ×2 (19:56→21:00)
[2019-07-16] MEDS ORDERED: fentaNYL/PF 50MCG/1 ML 2ML syringe ONE (20:13)
[2019-07-16] MEDS ORDERED: MIDAZolam 5mg/5ml vial ONE (20:14)
[2019-07-16] MEDS ORDERED: LIDOcaine Viscous 15ml cup ONE (20:14)
--- NOTE | 2019-07-16 20:18 | NUR ---
PT GOING TO GI LAB NOW.
[2019-07-16] MEDS ORDERED: epiNEPHrine 0.1mg/ml 10ml syringe ONE (21:32)
[2019-07-16] MEDS ORDERED: potassium Cl 20 mEq SR tablet PO PRN ×2 (22:45)
[2019-07-16] MEDS ORDERED: dextrose ORAL solution 15 GM/59 ML bottle PO PRN ×2 (22:45)
[2019-07-16] MEDS ORDERED: acetaminophen 650mg rectal suppository RC PRN (22:45)
[2019-07-16] MEDS ORDERED: acetaminophen 325mg tablet PO PRN ×2 (22:45)
[2019-07-16] MEDS ORDERED: MESSAGE TO PHARMACY PO ONE (22:45)
[2019-07-16] MEDS ORDERED: ipratropium/albuterol 3ml nebule NEB PRN (22:45)
[2019-07-16] MEDS ORDERED: potassium CL 10mEq/100ml bag 100 ML IV PRN ×2 (22:45)
[2019-07-16] MEDS ORDERED: HYDROcodone/acetaminophen 5mg/325mg tablet PO PRN (22:45)
[2019-07-16] MEDS ORDERED: dextrose 50%-water 50ml dispensing syringe IV PRN ×2 (22:45)
[2019-07-16] MEDS ORDERED: insulin Lispro (HumaLOG) vial - multi-dose SQ SCH (22:45)
[2019-07-16] MEDS ORDERED: glucagon, human recombinant 1mg kit SUBCUT PRN (22:45)
[2019-07-16] MEDS ORDERED: ondansetron/PF 4mg/2ml inj IV PRN (22:45)
--- NOTE | 2019-07-16 23:08 | NUR ---
PT RETUNED FROM GI LAB.
[2019-07-16] MEDS ORDERED: nitroGLYCERIN 0.4mg SUBLingual tab SL PRN (23:15)
[2019-07-16] MEDS ORDERED: montelukast 10mg tablet PO PRN (23:15)
[2019-07-16] MEDS ORDERED: albuterol 2.5 MG/3 ML nebule NEB PRN (23:15)
[2019-07-16] MEDS ORDERED: morphine 4 MG/ML inj SYRINge IV ONE (23:20)
--- NOTE | 2019-07-16 23:35 | NUR ---
PER PIPE ORGAN INSTALLER WILMER MORLEYAY TO GIVE PATIENT SMALL SIPS OF WATER, PT ABLE TO TOLERATE APPROX 50 CC OF WATER, NO N/V.
[2019-07-16 23:44] LABS: BASOPHILS % (AUTO) 0.3 % (0-1); EOSINOPHILS % (AUTO) 0.3 % (0-6); HEMATOCRIT 33.5 % (42.0-52.0); HEMOGLOBIN 11.1 g/dl (14.0-17.9); LYMPHOCYTES % (AUTO) 7.7 % (21-51); MEAN CORPUSCULAR HEMOGLOBIN 25.9 PG (27.0-31.0); MEAN CORPUSCULAR HGB CONC 33.1 g/dL (33.0-36.5); MEAN CORPUSCULAR VOLUME 78.2 FL (78-98); MEAN PLATELET VOLUME 7.2 FL (7.4-10.4); MONOCYTES # (AUTO) 0.7 X10'3 (0-0.9); NEUTROPHILS # (AUTO) 10.7 X10'3 (1.8-7.7); NEUTROPHILS % (AUTO) 85.7 % (42-75); PLATELET COUNT 278 X10'3 (140-440); RED BLOOD COUNT 4.28 X10'6 (4.70-6.10); RED CELL DISTRIBUTION WIDTH 19.4 % (11.5-14.5); WHITE BLOOD COUNT 12.5 X10'3 (4.5-11.0)
--- NOTE | 2019-07-16 23:50 | NUR ---
Patient in room CICU 2009. I have received report from Conner HEREDIA from ED and had the opportunity to ask questions and assume patient care. Patient came with all belongings, transferred to bed with help due to dizziness, can reposition in bed independently; will continue to monitor.
[2019-07-17] VITALS (24 sets, daily range): BP systolic 92–158; BP diastolic 51–89
[2019-07-17 00:01] LABS: ANISOCYTOSIS 2+; BURR CELLS 2+; ELLIPTOCYTES 2+; MICROCYTOSIS 1+; PLATELET ESTIMATE NORMAL; SCHISTOCYTES FEW
[2019-07-17 00:09] LABS: HEMOGLOBIN A1C 9.9 % (4.5-6.2)
[2019-07-17] MEDS ORDERED: ISOS60TA4 PO (00:29)
[2019-07-17] MEDS: normal saline 1000ml 1,000 ML IV SCH ×3 (00:44→20:49)
[2019-07-17] MEDS: pantoprazole 40MG/NS 100ML BAG 100 ML IV SCH ×5 (02:26→20:48)
[2019-07-17] MEDS: HYDROcodone/acetaminophen 10/325mg tab PO PRN ×2 (02:26→20:52)
[2019-07-17] MEDS: albuterol 2.5 MG/3 ML nebule NEB SCH ×4 (02:43→20:06)
[2019-07-17 04:56] LABS: BASOPHILS % (AUTO) 0.4 % (0-1); EOSINOPHILS # (AUTO) 0.1 X10'3 (0-0.9); EOSINOPHILS % (AUTO) 1.2 % (0-6); HEMATOCRIT 27.1 % (42.0-52.0); HEMOGLOBIN 9.2 g/dl (14.0-17.9); LYMPHOCYTES # (AUTO) 1.3 X10'3 (1.1-4.8); LYMPHOCYTES % (AUTO) 19.3 % (21-51); MEAN CORPUSCULAR HEMOGLOBIN 26.4 PG (27.0-31.0); MEAN CORPUSCULAR VOLUME 77.7 FL (78-98); MEAN PLATELET VOLUME 7.2 FL (7.4-10.4); MONOCYTES # (AUTO) 0.7 X10'3 (0-0.9); MONOCYTES % (AUTO) 10.3 % (2-12); NEUTROPHILS # (AUTO) 4.7 X10'3 (1.8-7.7); NEUTROPHILS % (AUTO) 68.8 % (42-75); PLATELET COUNT 239 X10'3 (140-440); RED BLOOD COUNT 3.49 X10'6 (4.70-6.10); RED CELL DISTRIBUTION WIDTH 19.2 % (11.5-14.5); WHITE BLOOD COUNT 6.9 X10'3 (4.5-11.0)
[2019-07-17 05:05] LABS: PARTIAL THROMBOPLASTIN TIME 24 SECONDS (22-32)
[2019-07-17 05:31] LABS: ALANINE AMINOTRANSFERASE 23 U/L (12-78); ALBUMIN 2.6 G/DL (3.4-5.0); ALBUMIN/GLOBULIN RATIO 0.9 (1.1-1.5); ALKALINE PHOSPHATASE 38 IU/L (46-116); ANION GAP 10 (8-16); ASPARTATE AMINO TRANSFERASE 14 U/L (10-37); BILIRUBIN,TOTAL 0.2 MG/DL (0.1-1.0); BLOOD UREA NITROGEN 29 MG/DL (7-18); CALCIUM 7.5 MG/DL (8.5-10.1); CHLORIDE 105 MMOL/L (99-107); GLUCOSE 183 MG/DL (70-104); MAGNESIUM 1.3 MG/DL (1.5-2.4); PHOSPHORUS 2.8 MG/DL (2.3-4.5); POTASSIUM 3.9 MMOL/L (3.5-5.1); SODIUM 139 MMOL/L (135-145); TOTAL CARBON DIOXIDE 23.9 MMOL/L (24-32); TOTAL PROTEIN 5.4 G/DL (6.4-8.2); eGFR 75 ML/MIN
--- NOTE | 2019-07-17 06:27 | NUR ---
Patient in room CICU 2009. I have received report from GIOVANNA Esposito and had the opportunity to ask questions and assume patient care.
--- NOTE | 2019-07-17 06:38 | NUR ---
Problems reprioritized. Patient report given, questions answered & plan of care reviewed with Melanie HEREDIA.
[2019-07-17] MEDS ORDERED: cyclobenzaprine 10mg tablet PO SCH (08:00)
[2019-07-17] MEDS: budesonide 0.5mg/2ml UD nebule IH SCH ×2 (08:06→20:06)
[2019-07-17] MEDS ORDERED: morphine 2 MG/ML inj. syringe IV PRN (10:45)
[2019-07-17] MEDS: iron sucrose complex injection 200 MG in normal saline 100ml IV soln 100 ML IV SCH (10:56)
[2019-07-17] MEDS: docusate sod 100mg capsule PO SCH ×2 (11:34→20:52)
[2019-07-17] MEDS: levoTHYROXINE 75mcg tablet PO SCH (11:34)
[2019-07-17] MEDS: atorvastatin 10mg tablet PO SCH (11:34)
[2019-07-17 11:55] LABS: HEMATOCRIT 28.9 % (42.0-52.0); HEMOGLOBIN 9.6 g/dl (14.0-17.9); MEAN CORPUSCULAR HEMOGLOBIN 25.8 PG (27.0-31.0); MEAN CORPUSCULAR HGB CONC 33.1 g/dL (33.0-36.5); PLATELET COUNT 268 X10'3 (140-440); RED CELL DISTRIBUTION WIDTH 19.4 % (11.5-14.5)
--- NOTE | 2019-07-17 14:01 | NUR ---
Pt sitting in chair at bedside after physical therapy. Had positive orthostatic hypotension when standing per PT but normalized during his walk.
--- NOTE | 2019-07-17 14:04 | NUR ---
Spoke with Dr Pimentel re diet order and ok'd for clears to start and advance as tolerated. Ok for pills my mouth as well. Requested us to use pedi tubes for blood draws. Lab made aware.
--- NOTE | 2019-07-17 14:37 | NUR ---
DM consult, A1c 9.9, patient needs written DM education handout with verbal review and referral to outpatient DM education class on Tuesday morning prior to discharge, pt fatigued and not able for bedside education today, will follow up tomorrow. Patient has h/o CAD, esophageal stricture with frequent esophageal dilation, COPD, asthma, DM, PTSD, anxiety, depression. Presented to ED after bloody emesis. Most recent esophageal dilation yesterday per H&P. 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 Addendum: 07/17/19 at [address] Amended: Links added.
--- NOTE | 2019-07-17 18:39 | NUR ---
1835..Patient in room CICU 2009. I have received report from Josue HEREDIA and had the opportunity to ask questions and assume patient care.
[2019-07-17] MEDS ORDERED: insulin glargine (Lantus) pen - multi-dose SQ SCH (21:00)
[2019-07-17] MEDS ORDERED: clonazePAM 0.5mg tablet PO SCH (21:00)
[2019-07-17] MEDS ORDERED: nortriptyline 25mg capsule PO SCH (21:00)
[2019-07-18] VITALS (12 sets, daily range): BP systolic 112–171; BP diastolic 78–93
--- NOTE | 2019-07-18 00:24 | NUR ---
2100..Assessment as noted, declines bath at this time, norco given nate generalized pain effective, per pt stating, I feel better.
--- NOTE | 2019-07-18 00:26 | NUR ---
0000..Resting quietly, no changes noted.
[2019-07-18] MEDS: pantoprazole 40MG/NS 100ML BAG 100 ML IV SCH ×2 (01:09→07:18)
[2019-07-18] MEDS: albuterol 2.5 MG/3 ML nebule NEB SCH ×2 (02:12→08:37)
--- NOTE | 2019-07-18 04:11 | NUR ---
0400..Continues to rest quietly, no changes noted.
--- NOTE | 2019-07-18 06:26 | NUR ---
Patient in room CICU 2009. I have received report from GIOVANNA Nicholas and had the opportunity to ask questions and assume patient care.
--- NOTE | 2019-07-18 06:27 | NUR ---
0625..Problems reprioritized. Patient report given, questions answered & plan of care reviewed with Doc HEREDIA.
[2019-07-18 06:38] LABS: BASOPHILS % (AUTO) 0.8 % (0-1); EOSINOPHILS # (AUTO) 0.2 X10'3 (0-0.9); EOSINOPHILS % (AUTO) 4.8 % (0-6); HEMATOCRIT 27.1 % (42.0-52.0); HEMOGLOBIN 9.2 g/dl (14.0-17.9); LYMPHOCYTES # (AUTO) 1.2 X10'3 (1.1-4.8); LYMPHOCYTES % (AUTO) 26.5 % (21-51); MEAN CORPUSCULAR HEMOGLOBIN 26.5 PG (27.0-31.0); MEAN CORPUSCULAR HGB CONC 33.9 g/dL (33.0-36.5); MEAN CORPUSCULAR VOLUME 78.1 FL (78-98); MEAN PLATELET VOLUME 6.9 FL (7.4-10.4); MONOCYTES # (AUTO) 0.5 X10'3 (0-0.9); MONOCYTES % (AUTO) 10.7 % (2-12); NEUTROPHILS # (AUTO) 2.6 X10'3 (1.8-7.7); NEUTROPHILS % (AUTO) 57.2 % (42-75); PLATELET COUNT 276 X10'3 (140-440); RED BLOOD COUNT 3.47 X10'6 (4.70-6.10); RED CELL DISTRIBUTION WIDTH 19.5 % (11.5-14.5); WHITE BLOOD COUNT 4.6 X10'3 (4.5-11.0)
[2019-07-18 06:45] LABS: PARTIAL THROMBOPLASTIN TIME 25 SECONDS (22-32)
[2019-07-18 06:47] LABS: ALANINE AMINOTRANSFERASE 25 U/L (12-78); ALBUMIN 2.9 G/DL (3.4-5.0); ALBUMIN/GLOBULIN RATIO 0.9 (1.1-1.5); ALKALINE PHOSPHATASE 43 IU/L (46-116); ANION GAP 9 (8-16); ASPARTATE AMINO TRANSFERASE 12 U/L (10-37); BILIRUBIN,TOTAL 0.1 MG/DL (0.1-1.0); BLOOD UREA NITROGEN 9 MG/DL (7-18); BUN/CREATININE RATIO 10.3 (5.4-32.0); CALCIUM 8.6 MG/DL (8.5-10.1); CHLORIDE 106 MMOL/L (99-107); CREATININE 0.87 MG/DL (0.60-1.10); GLUCOSE 207 MG/DL (70-104); MAGNESIUM 1.8 MG/DL (1.5-2.4); PHOSPHORUS 2.9 MG/DL (2.3-4.5); POTASSIUM 4.4 MMOL/L (3.5-5.1); SODIUM 140 MMOL/L (135-145); TOTAL CARBON DIOXIDE 24.7 MMOL/L (24-32); TOTAL PROTEIN 6.1 G/DL (6.4-8.2); eGFR 88 ML/MIN
[2019-07-18 07:14] LABS: PLATELET ESTIMATE NORMAL
[2019-07-18 07:15] LABS: ANISOCYTOSIS 2+; ELLIPTOCYTES 1+; MICROCYTOSIS 1+
[2019-07-18] MEDS: levoTHYROXINE 75mcg tablet PO SCH (07:45)
[2019-07-18] MEDS: docusate sod 100mg capsule PO SCH (07:45)
[2019-07-18] MEDS: iron sucrose complex injection 200 MG in normal saline 100ml IV soln 100 ML IV SCH (07:45)
[2019-07-18] MEDS: atorvastatin 10mg tablet PO SCH (07:45)
[2019-07-18] MEDS: HYDROcodone/acetaminophen 10/325mg tab PO PRN (07:55)
[2019-07-18] MEDS: budesonide 0.5mg/2ml UD nebule IH SCH (08:37)
--- NOTE | 2019-07-18 10:46 | NUR ---
F/u: Pt seen by WU for written/verbal DM ed w/ RD contact information provided. WU reviewed portion sizing, meal frequency, hydration, protein options, types of carbs, and encouraged to attend CDE Course. Addendum: 07/18/19 at [address] Amended: Links added.
--- NOTE | 2019-07-18 11:30 | NUR ---
Patient discharged. Patient has been given discharge instructions and had all questions answered. Patient was alert and oriented and in a stable condition. He stated that he understood the instructions that were given to him and that he had no further questions. Patient had all belongings when he departed. Patient left in wheel chair to awaiting taxi with the cracking unit operator.
[2019-07-18] MEDS ORDERED: lactulose 20gm/30ml cup PO PRN (22:45)
== END 2019-07-18 11:30 | disposition home or self-care (01) | DRG 369 ==
LOC: ER 19:19 → ED HOLD 23:39 → CICU 2S 23:48 → CMPBEDREQ 23:50
PROVIDERS: ADMIT Internal Medicine Critical Care Medicine; ATTEND Internal Medicine Critical Care Medicine
PROC: 0W3P8ZZ Control Bleeding in Gastrointestinal Tract, Via Natural or Artificial Opening Endoscopic (ICD-10-PCS; principal; 2019-07-16)
PROC: 3E0G8GC Introduction of Other Therapeutic Substance into Upper GI, Via Natural or Artificial Opening Endoscopic (ICD-10-PCS; 2019-07-16)
DX: K22.6 Gastro-esophageal laceration-hemorrhage syndrome (principal); R65.10 Systemic inflammatory response syndrome (SIRS) of non-infectious origin without acute organ dysfunction; D50.9 Iron deficiency anemia, unspecified; E03.9 Hypothyroidism, unspecified; E11.9 Type 2 diabetes mellitus without complications; E78.00 Pure hypercholesterolemia, unspecified; E78.5 Hyperlipidemia, unspecified; F20.9 Schizophrenia, unspecified; F43.10 Post-traumatic stress disorder, unspecified; G89.29 Other chronic pain; I10 Essential (primary) hypertension; I25.10 Atherosclerotic heart disease of native coronary artery without angina pectoris; J44.9 Chronic obstructive pulmonary disease, unspecified; K21.0 Gastro-esophageal reflux disease with esophagitis; F12.90 Cannabis use, unspecified, uncomplicated; F32.9 Major depressive disorder, single episode, unspecified; F41.9 Anxiety disorder, unspecified; M54.9 Dorsalgia, unspecified; Z53.1 Procedure and treatment not carried out because of patient's decision for reasons of belief and group pressure; I25.2 Old myocardial infarction; Z79.02 Long term (current) use of antithrombotics/antiplatelets; Z79.51 Long term (current) use of inhaled steroids; Z79.84 Long term (current) use of oral hypoglycemic drugs; Z87.891 Personal history of nicotine dependence; Z95.5 Presence of coronary angioplasty implant and graft; Z88.0 Allergy status to penicillin; Z91.018 Allergy to other foods; Z90.49 Acquired absence of other specified parts of digestive tract; Z79.899 Other long term (current) drug therapy; Z79.82 Long term (current) use of aspirin
CPT/HCPCS: 36415; 43236; 43255; 71045; 80053; 82728; 82948; 83036; 83540; 83550; 83735; 84100; 84443; 84466; 85025; 85027; 85610; 85730; 86885; 86900; 86901; 87081; 93005; 94640; 94760; 96365; 96375; 97161; 97530; 99152; 99153; 99291; A4620; C9113; G0378; J0171; J1756; J1815; J2250; J2270; J2405; J3010; J7040; J7626

== ENCOUNTER 2019-10-20 10:02 | Emergency (ER) | payer MEDICARE, MEDICAID ==
[~2019-10-20] VITALS: Ht 172.7 cm; Wt 77.3 kg
[~2019-10-20 10:02] MED LIST changes: -CYCL-394 PO; +ISOS60TA4 PO; -LEVO100T PO; -ZIPR40CA2 PO
[2019-10-20] MEDS ORDERED: normal saline 1000ML IV soln IVB ONE (10:20)
[2019-10-20] MEDS ORDERED: LORazepam 2 mg/ml vial IV ONE (10:35)
--- NOTE | 2019-10-20 11:05 | NUR ---
pt to gi lab, via mandie velasquez rn be back in hour
[2019-10-20 11:08] VITALS: BP 138/93
[2019-10-20] MEDS ORDERED: LIDOcaine Viscous 15ml cup ONE (11:13)
[2019-10-20] MEDS ORDERED: MIDAZolam 5mg/5ml vial ONE (11:13)
[2019-10-20] MEDS ORDERED: fentaNYL/PF 50MCG/1 ML 2ML syringe ONE (11:13)
[2019-10-20 11:33] VITALS: BP 128/92
[2019-10-20 11:43] VITALS: BP 124/92
[2019-10-20 11:53] VITALS: BP 129/87
--- NOTE | 2019-10-20 12:31 | NUR ---
PT BACK FROM GI LAB.
[2019-10-20] MEDS ORDERED: SUCR1TAB34 PO ×2 (12:53→13:03)
[2019-10-20] MEDS ORDERED: sucralfate 1gm/10ml UD suspension PO ONE (13:00)
[2019-10-20 13:10] VITALS: BP 127/99
== END 2019-10-20 13:17 | disposition home or self-care (01) ==
LOC: ER 10:02
DX: K22.2 Esophageal obstruction (principal); R13.10 Dysphagia, unspecified; I25.10 Atherosclerotic heart disease of native coronary artery without angina pectoris; E78.00 Pure hypercholesterolemia, unspecified; I10 Essential (primary) hypertension; I25.2 Old myocardial infarction; E11.9 Type 2 diabetes mellitus without complications; G89.29 Other chronic pain; F12.90 Cannabis use, unspecified, uncomplicated; Z95.5 Presence of coronary angioplasty implant and graft; Z90.49 Acquired absence of other specified parts of digestive tract; Z98.890 Other specified postprocedural states; Z88.0 Allergy status to penicillin; Z79.82 Long term (current) use of aspirin; Z79.899 Other long term (current) drug therapy
CPT/HCPCS: 43247; 96374; 99152; 99285; C1769; J2060; J2250; J3010; J7040; A4620

== ENCOUNTER 2019-10-22 13:32 | Emergency (ER) | payer MEDICARE, MEDICAID ==
[~2019-10-22] VITALS: Ht 172.7 cm; Wt 79.6 kg
[~2019-10-22 13:32] MED LIST changes: +SUCR1TAB34 PO
[2019-10-22 15:48] VITALS: BP 138/94
== END 2019-10-22 15:50 | disposition home or self-care (01) ==
LOC: ER 13:35
DX: R13.10 Dysphagia, unspecified (principal); I25.10 Atherosclerotic heart disease of native coronary artery without angina pectoris; E78.00 Pure hypercholesterolemia, unspecified; I10 Essential (primary) hypertension; I25.2 Old myocardial infarction; E11.9 Type 2 diabetes mellitus without complications; G89.29 Other chronic pain; F12.90 Cannabis use, unspecified, uncomplicated; Z95.5 Presence of coronary angioplasty implant and graft; Z90.49 Acquired absence of other specified parts of digestive tract; Z98.890 Other specified postprocedural states; Z88.0 Allergy status to penicillin; Z79.82 Long term (current) use of aspirin; Z79.899 Other long term (current) drug therapy
CPT/HCPCS: 99283

== ENCOUNTER 2021-05-18 15:03 | Emergency (ER) | payer MEDICARE, MEDICAID ==
[~2021-05-18] VITALS: Ht 180.3 cm; Wt 70.0 kg
[~2021-05-18 15:03] MED LIST changes: -ISOS60TA4 PO; +ISOS60TA71 PO
[2021-05-18 15:07] VITALS: BP 196/103
--- NOTE | 2021-05-18 15:10 | NUR ---
MD in triage with patient, pt in no acute distress, airway clear.
== END 2021-05-18 19:43 | disposition left against medical advice (07) ==
LOC: ER 15:05
DX: R13.10 Dysphagia, unspecified (principal); I25.10 Atherosclerotic heart disease of native coronary artery without angina pectoris; E78.00 Pure hypercholesterolemia, unspecified; I10 Essential (primary) hypertension; I25.2 Old myocardial infarction; E11.9 Type 2 diabetes mellitus without complications; G89.29 Other chronic pain; Z90.49 Acquired absence of other specified parts of digestive tract; Z98.890 Other specified postprocedural states; F12.90 Cannabis use, unspecified, uncomplicated; Z88.0 Allergy status to penicillin; Z91.02 Food additives allergy status; Z79.82 Long term (current) use of aspirin; Z79.84 Long term (current) use of oral hypoglycemic drugs; Z79.899 Other long term (current) drug therapy
CPT/HCPCS: 99281

== ENCOUNTER 2022-01-08 06:16 | Day surgery (SDC) | payer MEDICARE, MEDICAID ==
[2022-01-08] VITALS (9 sets, daily range): BP systolic 107–154; BP diastolic 69–89
[~2022-01-08] VITALS: Ht 172.7 cm; Wt 73.3 kg
[~2022-01-08 06:16] MED LIST changes: +famotidine 20mg tablet PO ONE; +ringers solution, lacted 1,000 ML IV SCH
[2022-01-08] MEDS ORDERED: FENO134C21 PO (07:08)
[2022-01-08] MEDS ORDERED: INSU100I31 SQ (07:08)
[2022-01-08] MEDS ORDERED: SITA1TAB2 PO (07:08)
[2022-01-08] MEDS ORDERED: ROPI1TAB6 PO (07:08)
[2022-01-08] MEDS ORDERED: ESOM40CA54 PO (07:08)
[2022-01-08] MEDS ORDERED: RANO500T6 PO (07:08)
[2022-01-08 07:09] LABS: BASOPHILS # (AUTO) 0.1 X10'3 (0-0.2); BASOPHILS % (AUTO) 0.7 % (0-1); EOSINOPHILS # (AUTO) 0.3 X10'3 (0-0.9); EOSINOPHILS % (AUTO) 4.7 % (0-6); LYMPHOCYTES # (AUTO) 1.5 X10'3 (1.1-4.8); LYMPHOCYTES % (AUTO) 20.3 % (21-51); MEAN CORPUSCULAR HEMOGLOBIN 30.2 PG (27.0-31.0); MEAN CORPUSCULAR HGB CONC 34.4 g/dL (33.0-36.5); MEAN CORPUSCULAR VOLUME 87.9 FL (78-98); MONOCYTES # (AUTO) 0.7 X10'3 (0-0.9); MONOCYTES % (AUTO) 9.7 % (2-12); NEUTROPHILS # (AUTO) 4.7 X10'3 (1.8-7.7); NEUTROPHILS % (AUTO) 64.6 % (42-75); PRE OP HEMATOCRIT 42.9 % (42.0-52.0); PRE OP HEMOGLOBIN 14.7 g/dL (14.0-17.9); PRE OP PLATELET COUNT 276 X10'3 (140-440); RED BLOOD COUNT 4.88 X10'6 (4.70-6.10); RED CELL DISTRIBUTION WIDTH 13.8 % (11.5-14.5)
[2022-01-08] MEDS ORDERED: MIDAZolam 1 MG/ML 5ML VIAL ONE (07:37)
[2022-01-08] MEDS ORDERED: FENTANYL CITRATE/PF 50 MCG/1 ML VIAL ONE (07:37)
[2022-01-08] MEDS ORDERED: triamcinolone acetonide 40mg/ml inj ONE (07:53)
[2022-01-08 08:00] LABS: ALBUMIN 3.7 G/DL (3.4-5.0); ALBUMIN/GLOBULIN RATIO 1.1 (1.1-1.5); ALKALINE PHOSPHATASE 39 IU/L (46-116); BLOOD UREA NITROGEN 10 MG/DL (7-18); BUN/CREATININE RATIO 10.9 (5.4-32.0); CHLORIDE 104 MMOL/L (99-107); CREATININE 0.92 MG/DL (0.60-1.10); PRE OP ALT 32 U/L (30-65); PRE OP ANION GAP 13 (8-16); PRE OP AST 17 U/L (10-37); PRE OP BILIRUB, TOTAL 0.3 MG/DL (0.0-1.0); PRE OP GLUCOSE 187 MG/DL (70-104); PRE OP POTASSIUM 4.4 MMOL/L (3.4-5.1); PRE OP SODIUM 140 MMOL/L (135-145); TOTAL CARBON DIOXIDE 22.7 MMOL/L (24-32); TOTAL PROTEIN 7.2 G/DL (6.4-8.2); eGFR 82 ML/MIN
[2022-01-08] MEDS ORDERED: propofol inj 20 ML IV ONE (08:13)
--- NOTE | 2022-01-08 08:16 | NUR ---
Received from OR via [facility] IN STABLE CONDITION , accompanied by Anesthesiologist and EQUINE PHARMACOLOGY TECHNICIAN report given by EQUINE PHARMACOLOGY TECHNICIAN AND Anesthesiolgist. Addendum: 01/08/22 at 0820 by Thuy Álvarez RN Amended: Links added.
--- NOTE | 2022-01-08 09:56 | NUR ---
PATIENT DISCHARGED FROM PACU IN STABLE CONDITION AFTER WRITTEN AND VERBAL DISCHARGE INSTRUCTIONS GIVEN. PATIENT GAVE VERBAL UNDERSTANDING OF INSTRUCTIONS. PATIENT LEFT FACILITY VIA WHEELCHAIR WITH RN. Addendum: 01/08/22 at 1017 by Thuy Álvarez RN Amended: Links added.
== END 2022-01-08 09:56 | disposition home or self-care (01) ==
LOC: PAS 06:16
PROVIDERS: ATTEND Internal Medicine Gastroenterology
DX: R13.14 Dysphagia, pharyngoesophageal phase (principal); K22.2 Esophageal obstruction; I25.10 Atherosclerotic heart disease of native coronary artery without angina pectoris; I10 Essential (primary) hypertension; I25.2 Old myocardial infarction; F41.9 Anxiety disorder, unspecified; F20.9 Schizophrenia, unspecified; E11.9 Type 2 diabetes mellitus without complications; F12.90 Cannabis use, unspecified, uncomplicated; Z20.822 Contact with and (suspected) exposure to COVID-19; Z95.5 Presence of coronary angioplasty implant and graft; Z88.0 Allergy status to penicillin; Z91.018 Allergy to other foods; Z90.49 Acquired absence of other specified parts of digestive tract; Z98.890 Other specified postprocedural states; Z79.899 Other long term (current) drug therapy
CPT/HCPCS: 36415; 43236; 43248; 80053; 82948; 85025; 87635; 93005; C1769; C9803; J2250; J2704; J3010; J3301; J7120; Z7506; Z7512; 43243; A4618